=== PATIENT | female | born 1975 ===

== ENCOUNTER 2021-04-28 09:10 | Outpatient (REF) | payer OTHER, SELFPAY ==
[2021-04-28 09:33] LABS: MANUAL DIFF FLAG NO
[2021-04-28 10:44] LABS: Basophils Absolute Auto 0.1 X10*3/uL (0.0-0.2); Basophils Percent Auto 0.8 % (0-2); Eosinophils Absolute Auto 0.2 X10*3/uL (0.0-0.4); Eosinophils Percent Auto 3.1 % (0-4); Hematocrit 38.5 % (37-47); Hemoglobin 12.1 g/dl (12.0-16.0); Imm Gran Abs Auto 0.01 X10*3/uL (0.00-0.03); Imm Gran Pct Auto 0.1 % (0.0-0.4); Lymphocytes Absolute Auto 1.9 X10*3/uL (1.2-4.9); Lymphocytes Percent Auto 25.6 % (20-40); Mean Corpuscular HGB Conc 31.4 g/dl (31.0-35.0); Mean Corpuscular Hemoglobin 26.9 pg (27.0-33.0); Mean Corpuscular Volume 85.6 fL (80-98); Mean Platelet Volume 9.1 fL (9.4-12.3); Monocytes Absolute Auto 0.4 X10*3/uL (0.1-1.2); Monocytes Percent Auto 5.6 % (2-11); Neutrophils Absolute Auto 4.8 X10*3/uL (2.0-8.3); Neutrophils Percent Auto 64.8 % (45-73); Platelet Count 330 X10*3/uL (160-400); Red Cell Distribution Width 13.4 % (11.0-16.0); White Blood Count 7.5 X10*3/uL (4.8-10.8)
[2021-04-28 10:58] LABS: Alanine Aminotransferase 15 U/L (0-31); Albumin Level 4.1 g/dL (3.5-5.0); Alkaline Phosphatase 88 U/L (39-117); Anion Gap 9 (12-20); Aspartate Amino Transferase 16 U/L (5-31); Bilirubin Total 0.5 mg/dL (0.0-1.0); Blood Urea Nitrogen 8 mg/dL (9-16); Calcium 8.9 mg/dL (8.4-10.2); Carbon Dioxide 27 mmol/L (22-29); Chloride 108 mmol/L (96-108); Cholesterol 186 mg/dL; Estimated Glomerular Filt Rate > 60; Glucose Random 113 mg/dL (60-115); HDL Cholesterol 50 mg/dL; LDL Cholesterol Calculated 116 mg/dl; Potassium 4.7 mmol/L (3.3-5.1); Sodium 139 mmol/L (135-145); Total Protein 7.2 g/dL (6.5-8.0); Triglycerides 102 mg/dL
[2021-04-28 11:09] LABS: Estimated Average Glucose 120 mg/dL; Hemoglobin A1C 126.4308 umol/L; Hemoglobin A1c % 5.8 %
[2021-04-28 11:18] LABS: Thyroid Stimulating Hormone 1.02 uIU/mL (0.32-4.0)
[2021-04-28 11:20] LABS: Free T4 (Free Thyroxine) 0.91 ng/dL (0.71-1.85); Vitamin D 25-OH Total 12.4 ng/mL (>30)
[2021-04-28 11:27] LABS: Folate 13.4 ng/mL (> or = 4.0); Vitamin B12 288 pg/mL (200-900)
== END 2021-04-28 09:11 | disposition home or self-care (01) ==
LOC: HO.LAB 09:10
PROVIDERS: Internal Medicine; PCP Internal Medicine; Visit Provider Internal Medicine
DX: R10.10 Upper abdominal pain, unspecified (principal); R73.02 Impaired glucose tolerance (oral); E78.00 Pure hypercholesterolemia, unspecified
CPT/HCPCS: 36415; 80053; 80061; 82306; 82607; 82746; 83036; 84439; 84443; 85025

== ENCOUNTER 2022-07-04 11:03 | Outpatient (REF) | payer OTHER, SELFPAY ==
--- NOTE | ~2022-07-04 | MM_ITS ---
EXAMINATION: MM SCREENING DIGITAL BREAST TOMOSYNTHESIS, BILATERAL CLINICAL INFORMATION: Screening. Asymptomatic. The lifetime risk of breast cancer based on the Tyrer-Cuzick Model is 6.8%. COMPARISON: Mammography: April 07, 2020 and studies dating back to June 06, 2017 TECHNIQUE: Digital breast tomosynthesis is performed in both the craniocaudal and mediolateral oblique views along with computer-aided detection (CAD). Synthesized 2D images are generated from the tomosynthesis. FINDINGS: The breasts are heterogeneously dense, which may obscure small masses (ACR BI-RADS breast composition Category c). There are no significant masses, abnormal calcifications, or other abnormalities. MM/MM tomosynthesis screening BI IMPRESSION: No significant changes from prior exam. ASSESSMENT: BI-RADS 1: Negative RECOMMENDATION: Routine annual mammography screening. This patient's information was entered into a reminder system with a target due date for their next mammogram.
== END 2022-07-04 11:04 | disposition home or self-care (01) ==
LOC: HO.MAMMO 11:03
PROVIDERS: PCP Internal Medicine; Visit Provider Internal Medicine
DX: Z12.31 Encounter for screening mammogram for malignant neoplasm of breast (principal)
CPT/HCPCS: 77063; 77067

== ENCOUNTER 2022-08-07 08:36 | Outpatient (REF) | payer SELFPAY ==
[2022-08-07 08:46] LABS: MANUAL DIFF FLAG NO
[2022-08-07 09:12] LABS: Basophils Percent Auto 0.6 % (0-2); Eosinophils Absolute Auto 0.2 X10*3/uL (0.0-0.4); Eosinophils Percent Auto 2.8 % (0-4); Hematocrit 37.8 % (37.0-47.0); Hemoglobin 11.5 g/dl (12.0-16.0); Imm Gran Abs Auto 0.03 X10*3/uL (0.00-0.03); Imm Gran Pct Auto 0.4 % (0.0-0.4); Lymphocytes Absolute Auto 2.4 X10*3/uL (1.2-4.9); Lymphocytes Percent Auto 32.8 % (20-40); Mean Corpuscular HGB Conc 30.4 g/dl (31.0-35.0); Mean Corpuscular Hemoglobin 26.3 pg (27.0-33.0); Mean Corpuscular Volume 86.3 fL (80.0-98.0); Mean Platelet Volume 8.9 fL (9.4-12.3); Monocytes Absolute Auto 0.5 X10*3/uL (0.1-1.2); Monocytes Percent Auto 6.3 % (2-11); Neutrophils Absolute Auto 4.1 x10*3/uL (2.0-8.3); Neutrophils Percent Auto 57.1 % (45-73); Platelet Count 345 X10*3/uL (160-400); Red Blood Count 4.38 X10*6/uL (4.20-5.50); Red Cell Distribution Width 13.2 % (11.0-16.0); White Blood Count 7.2 X10*3/uL (4.8-10.8)
[2022-08-07 09:49] LABS: HBS Num1 0.18 mIU/mL (0-7.99); HBc Num1 0.09 S/CO (0.00-0.79); HBsAGNum1 0.22 S/CO (0.00-0.99); Hepatitis B Core Antibody Nonreactive (Nonreactive); Hepatitis B Surface Antigen Negative (Negative); ~Hepatitis B Surface Antibody NONREACTIVE (Nonreactive); ~Hepatitis C Antibody Nonreactive (Nonreactive)
[2022-08-08 05:33] LABS: Rubella IgG Antibody 1.39 Index
[2022-08-09 11:23] LABS: TS Negative Control Passed; TS Panel A 0; TS Panel B 0; TS Positive Control Passed; TSpotTB Negative (Negative)
== END 2022-08-07 08:37 | disposition home or self-care (01) ==
LOC: HO.LAB 08:36
PROVIDERS: Absent Provider Nurse Practitioner Family; PCP Internal Medicine; Visit Provider Internal Medicine
DX: Z02.1 Encounter for pre-employment examination (principal); R79.89 Other specified abnormal findings of blood chemistry; Z13.0 Encounter for screening for diseases of the blood and blood-forming organs and certain disorders involving the immune mechanism; Z11.1 Encounter for screening for respiratory tuberculosis
CPT/HCPCS: 36415; 85025; 86481; 86704; 86706; 86735; 86762; 86765; 86787; 86803; 87340

== ENCOUNTER 2023-05-21 16:32 | Outpatient (AMB) | payer OTHER, SELFPAY ==
[2023-05-21 16:35] VITALS: BP 116/78; PULSE 86; O2SAT 99; BMI 38.3
--- NOTE | 2023-05-21 16:35 | A.OFFPC_ITS ---
Vital Signs 3 05/21/23 16:35 Height 5 ft 3 in Weight 216 lb 0.8 oz BMI 38.3 BP 116/78 Blood Pressure Location Lt brachial Position Sitting Pulse 86 Pulse Source Pulse Oximeter Pulse Oximetry (%) 99 Oxygen Delivery Method Room Air Intake Visit Reasons: PE Donation Specialist Required: No Allergies No Known Allergies Allergy (Verified 05/21/23 16:40) Medication List - Last Reconciled 05/21/23 by Klaus Pineda MD Tobacco use date assessed: 05/21/23 Dental Screening Dental Screen Date: 05/21/23 Did you have a dental visit in the last 12 months?: Yes Did you have a dental problem in the last 6 months where you did not have access to dental care?: No Was dental information given to patient?: Patient has dentist HPI PE 2 HPI0 Details 48-year-old obese female with impaired g lucose tolerance generalized anxiety disorder coming in for physical exam. Last seen in January 2022. Mammogram is due in June. Review of the notes May 2022 was in the hospital for menorrhagia- was advised iud but patient declined and wants to have surgery, occ nausea, , chest pain- sob, 1 day, , no heart burn feels when relaxed but acytive no pain, problem with sleeping and wants to take med PFSH Medical History (Updated 05/21/23 @ 17:06 by Klaus Pineda MD) Abnormal perimenopausal bleeding Allergic rhinitis Generalized anxiety disorder Vitamin D deficiency Lumbar herniated disc Obesity (BMI 30-39.9) Migraine headache Surgical History (Updated 08/15/20 @ 11:24 by Klaus Pineda MD) History of back surgery History of tubal ligation Family History (Updated 05/21/23 @ 16:54 by Klaus Pineda MD) Father Myocardial infarction History of heart artery stent CVD (cardiovascular disease) HTN (hypertension) Mother No problems noted. Maternal Grandfather Esophageal cancer Paternal Aunt Lung cancer Daughter Leukemia Social History (Updated 05/21/23 @ 16:54 by Klaus Pineda MD) Housing: Apartment Alcohol intake: never Patient Tobacco Use Status: Former Tobacco user Tobacco use type: Cigarette e-Cigarette/Vaping Use: Never Used Second Hand Smoke Exposure: No service: No Current occupational status: employed Cognitive needs: No Hearing needs: No Vision needs: No Questionnaire PHQ-9 Over the last 2 weeks, how often have you been bothered by any of the following problems? 1. Little interest or pleasure in doing things: not at all 2. Feeling down, depressed, or hopeless: not at all 3. Trouble falling or staying asleep, or sleeping too much: not at all 4. Feeling tired or having little energy: not at all 5. Poor appetite or overeating: not at all 6. Feeling bad about yourself - or that you are a failure or have let yourself or your family down: not at all 7. Trouble concentrating on things, such as reading the newspaper or watching television: not at all 8. Moving or speaking so slowly that other people could have noticed. Or the opposite - being so fidgety or restless that you have been moving around a lot more than usual: not at all 9. Thoughts that you would be better off or of hurting yourself in some way: not at all Total score: 0 Depression Screening Interpretation: Negative Depression Screening Done: Yes Source: Developed by Drs. Glenn Varela, Wanda Jasso, Jesús Owen and colleagues, with an educational torrey from [employer]. Thrive Questionnaire Date Thrive assessed: 05/21/23 I am a: Patient What is your living situation today?: I have a steady place to live Within the past 12 months, did the food you bought not last and you didn't have the money to get more?: Never true Within the past 12 months, did you worry whether your food would run out before you got money to buy more?: Never true Do you have trouble paying for medicines?: No Do you have trouble getting transportation to medical appointments?: No Do you have trouble paying your heating and electricity bill?: No Do you have trouble taking care of your child, family member or friend?: No Do you have trouble with day-to-day activities such as bathing, preparing meals, shopping, managing finances, etc.?: No Are you currently unemployed and looking for a job?: No Are you interested in more education?: No AUDIT C Alcohol Use Questionnaire (AUDIT-C) 1. How often do you have a drink containing alcohol?: 2-4 times a month 2. How many drinks containing alcohol do you have on a typical day when you are drinking?: 1 or 2 3. How often do you have six or more drinks on one occasion?: Never Total Score: 2 AVERY-7 AMB Questionnaire AVERY-7 Date AVERY - 7 assessed: 05/21/23 Feeling nervous, anxious, or on edge: 0 = Not at all Not being able to stop or control worryin = Not at all Worrying too much about different things: 0 = Not at all Trouble relaxin = Not at all Being so restless that it is hard to sit still: 0 = Not at all Becoming easily annoyed or irritable: 0 = Not at all Feeling afraid as if something awful might happen: 0 = Not at all Total AVERY-7 score (0-4 normal; 5-9 mild; 10-14 moderate; 15-21 severe): 0 Source: Developed by Drs. Glenn Varela, Wanda Jasso, Jesús Owen and colleagues, with an educational torrey from [employer]. Review of Systems Const Denies poor appetite and Denies weakness Eyes Denies no additional complaints ENT Reports Normal hearing present, Denies dizziness, Denies nasal congestion, Denies tinnitus and Denies sore throat Card Denies chest pain, Denies syncope, Denies rapid heart rate and Denies dyspnea Resp Denies cough and Denies dyspnea GI Denies change in stool character, Reports constipation, Denies diarrhea, Denies nausea and Denies vomiting Denies urinary frequency, Denies difficulty voiding and Denies dysuria Neuro Reports Normal hearing present, Denies confusion, Denies dizziness, Denies syncope and Denies weakness Psych Denies confusion Physical exam (Primary Care) Vital Signs: Last Vital Signs Pulse 86 05/21/23 16:35 BP 116/78 05/21/23 16:35 Pulse Ox 99 05/21/23 16:35 Oxygen Delivery Method Room Air 05/21/23 16:35 BMI result Body Mass Index 38.3 Tobacco/Smoking Status: Tobacco use Status Tobacco use date assessed 05/21/23 05/21/23 16:41 Patient Tobacco Use Status Former Tobacco user 05/21/23 16:41 Tobacco use type Cigarette 05/21/23 16:41 e-Cigarette/Vaping Use Never Used 05/21/23 16:41 PHQ-9: PHQ-9 Score PHQ-9: Total score 0 05/21/23 16:45 Depression Screening Interpretation: Negative Thrive Assessment: Date of Thrive Assessment Date Thrive assessed 05/21/23 05/21/23 16:41 Const General: No confusion Orientation/consciousness: No confusion HENMT Head: Yes normocephalic Ears: external ears normal and TM's normal bilaterally Face and sinus: Yes normal facial exam Mouth: moist mucous membranes Throat: Yes tonsils normal Eyes Conjunctivae: conjunctivae normal Pupils: Equal, round and reactive pupils present and Pupil accommodation reflex normal Direct Ophthalmoscopy: normal light reflex Neck Neck: No lymphadenopathy Thyroid: Thyroid normal Chest Chest palpation & inspection: normal inspection of the chest Resp Effort & Inspection: normal respiratory effort and no audible wheezes Auscultation: clear to auscultation bilaterally, no crackles, no wheezes and lung sounds not diminished Cardio Rate: regular rate Rhythm: regular rhythm Peripheral pulses: radial pulses present and dorsalis pedis present GI Palpation (GI): no masses Auscultation: normal bowel sounds and normoactive bowel sounds Rectal Exam - Female: deferred Skin General skin exam: no rashes or lesions noted Rashes: no rashes Neuro General: No confusion Cranial nerves: Yes Equal, round and reactive pupils present and Yes Normal hearing present Cognition (Neuro): normal cognition Gait exam (Neuro): Normal gait present Motor exam (neuro): 5/5 motor strength present throughout Deep tendon reflexes (DTR's): Right brachioradialis reflex intensity grade: 2+, Left brachioradialis reflex intensity grade: 2+, Right patellar reflex intensity grade: 2+ and Left patellar reflex intensity grade: 2+ Extrem General: No edema Ankle/foot/toe images: 2 1. scaly scabby rash erythematous area 5 by 4 inchesL foot Assessment and Plan Assessment & Plan (1) Annual physical exam: Code(s): Z00.00 - Encounter for general adult medical examination without abnormal findings (2) Obesity (BMI 30-39.9): Code(s): E66.9 - Obesity, unspecified (3) Generalized anxiety disorder: Code(s): F41.1 - Generalized anxiety disorder Plan: Stable (4) Menorrhagia: Code(s): N92.0 - Excessive and frequent menstruation with regular cycle Plan: Patient follows up with Gynecology (5) Impaired glucose tolerance: Code(s): R73.02 - Impaired glucose tolerance (oral) Plan: Decrease the amount of carbohydrate intake, pasta, bread, rice and potatoes are all sugar and that is aside from all the sweet stuff, remember that fruits are good but they are Sweet also. (6) Colon cancer screening: Code(s): Z12.11 - Encounter for screening for malignant neoplasm of colon (7) Insomnia: Code(s): G47.00 - Insomnia, unspecified (8) Eczematous dermatitis: Comment: left foot Code(s): L30.9 - Dermatitis, unspecified Orders: Orders 2 RT home sleep study Today G47.10 - Hypersomnia, unspecified Ferritin Today R73.02 - Impaired glucose tolerance (oral) IRON PROFILE Today R73.02 - Impaired glucose tolerance (oral) Free T4 (Free Thyroxine) Today R73.02 - Impaired glucose tolerance (oral) Thyroid Stimulating Hormone Today R73.02 - Impaired glucose tolerance (oral) Vitamin D 25-OH Total Today R73.02 - Impaired glucose tolerance (oral) Hemoglobin A1c Today R73.02 - Impaired glucose tolerance (oral) Reticulocyte Count Today R73.02 - Impaired glucose tolerance (oral) Lipid Panel Today E78.00 - Pure hypercholesterolemia, unspecified, R73.02 - Impaired glucose tolerance (oral) UA w Microscopic Today R73.02 - Impaired glucose tolerance (oral) Complete Blood Count Auto Diff Today R73.02 - Impaired glucose tolerance (oral) Vitamin B12 and Folate Today R73.02 - Impaired glucose tolerance (oral) Comprehensive Met. Panel Today R73.02 - Impaired glucose tolerance (oral) Erythrocyte Sedimentation Rate Today R73.02 - Impaired glucose tolerance (oral) C Reactive Protein Today R73.02 - Impaired glucose tolerance (oral) Referrals 2 Gastroenterology Referral Z12.11 - Encounter for screening for malignant neoplasm of colon Dermatology Referral L30.9 - Dermatitis, unspecified Medications: New 2 betamethasone dipropionate 0.05% 1 appl topical BID PRN 45 grams 0RF skin irritation L30.9 - Dermatitis, unspecified semaglutide (weight loss) (Ortiz) administer weeks 1 through 4 of therapy 0.25 mg (0.5 mL) subcut QWEEK 2 mL 1RF E66.9 - Obesity, unspecified trazodone 50 mg PO BEDTIME PRN 30 tabs 1RF sleep G47.00 - Insomnia, unspecified Coding Level of Care Code Est Pt Prev Care 40-64y(11335) Diagnoses Annual physical exam Z00.00 Obesity (BMI 30-39.9) E66.9 Generalized anxiety disorder F41.1 Menorrhagia N92.0 Impaired glucose tolerance R73.02 Colon cancer screening Z12.11 Insomnia G47.00 Eczematous dermatitis L30.9
== END 2023-05-21 17:14 | disposition home or self-care (01) ==
PROVIDERS: PCP Internal Medicine; Visit Provider Internal Medicine
DX: Z00.00 Encounter for general adult medical examination without abnormal findings (principal); E66.9 Obesity, unspecified; Z68.38 Body mass index [BMI] 38.0-38.9, adult; G43.909 Migraine, unspecified, not intractable, without status migrainosus
CPT/HCPCS: 99396

== ENCOUNTER 2023-05-29 10:25 | Outpatient (AMB) | payer OTHER, SELFPAY ==
--- NOTE | 2023-05-29 10:48 | AM.OFFVISNUR ---
Intake Intake Visit Reasons: FLU Allergies No Known Allergies Allergy (Verified 05/21/23 16:40) Office Procedures Flu Questionnaire Does the patient have a severe egg allergy?: No Does the patient have severe life threatening allergies?: No Does the patient have a fever or illness today?: No Has the patient ever had Guillain-[place] Syndrome?: No Has the patient ever had any past reaction to a flu shot?: No Immunizations flu vacc [id number] 6mos up(PF) 60 mcg(15 mcgx4)/0.5 mL IM syringe Performing Provider: Klaus Pineda MD Performing Location: [facility] Administered by: Loretta Wolf RN on 05/29/23 10:48 Dose Route Admin Location Dispensed Lot Number Expiration Date NDC Morning [employer] 0.5 mL IM Left Deltoid 0.5 mL [id number] 01/20/24 61540-992-75 [employer] VIS Given Date VIS Provided VIS Publication Date 05/29/23 Single Vaccine 21 Eligibility Eligibility Date Funding Source Not [facility] Eligible 05/29/23 Private Coding Assessment & Plan Assessment & Plan Orders: Orders Influenza [id number] Immunization Today Z23 - Encounter for immunization
== END 2023-05-29 10:53 | disposition home or self-care (01) ==
PROVIDERS: PCP Internal Medicine; Visit Provider Internal Medicine
DX: Z23 Encounter for immunization (principal)
CPT/HCPCS: 90471; 90686

== ENCOUNTER → 2023-06-21 07:37 | Outpatient (REF) | payer OTHER, SELFPAY ==
[2023-06-21 07:54] LABS: MANUAL DIFF FLAG NO
[2023-06-21 08:15] LABS: Basophils Percent Auto 0.7 % (0-2); Eosinophils Absolute Auto 0.2 X10*3/uL (0.0-0.4); Eosinophils Percent Auto 2.8 % (0-4); Hematocrit 39.1 % (37.0-47.0); Hemoglobin 12.3 g/dl (12.0-16.0); Imm Gran Abs Auto 0.02 X10*3/uL (0.00-0.03); Imm Gran Pct Auto 0.3 % (0.0-0.4); Lymphocytes Percent Auto 33.4 % (20-40); Mean Corpuscular HGB Conc 31.5 g/dl (31.0-35.0); Mean Corpuscular Hemoglobin 26.6 pg (27.0-33.0); Mean Corpuscular Volume 84.4 fL (80.0-98.0); Monocytes Absolute Auto 0.4 X10*3/uL (0.1-1.2); Monocytes Percent Auto 6.8 % (2-11); Neutrophils Absolute Auto 3.4 x10*3/uL (2.0-8.3); Platelet Count 331 X10*3/uL (160-400); Red Blood Count 4.63 X10*6/uL (4.20-5.50); Red Cell Distribution Width 13.2 % (11.0-16.0); Retic HGB Equivalent 28.7 pg (30.0-35.0); Reticulocyte Percent 1.2 % (0.5-1.8); Reticulocytes Absolute 0.057 X10*6/uL (0.026-0.095); White Blood Count 6.1 X10*3/uL (4.8-10.8)
[2023-06-21 08:27] LABS: Estimated Average Glucose 123 mg/dL; Hemoglobin A1c % 5.9 % (<6.0)
[2023-06-21 08:48] LABS: Alanine Aminotransferase 17 U/L (0-31); Albumin Level 4.2 g/dL (3.5-5.0); Alkaline Phosphatase 90 U/L (39-117); Anion Gap 10 (12-20); Aspartate Amino Transferase 18 U/L (5-31); Bilirubin Total 0.6 mg/dL (0.0-1.0); Blood Urea Nitrogen 9 mg/dL (9-16); C Reactive Protein 0.91 mg/dL (< or = 0.50); Calcium 9.1 mg/dL (8.4-10.2); Carbon Dioxide 27 mmol/L (22-29); Chloride 106 mmol/L (96-108); Cholesterol 185 mg/dL (<200); Estimated Glomerular Filt Rate > 60; Glucose Random 118 mg/dL (60-115); HDL Cholesterol 55 mg/dL (>40); Iron 91 mcg/dL (30-160); LDL Cholesterol Calculated 112 mg/dL (<100); Percent Iron Saturation 32 % (15-50); Sodium 139 mmol/L (135-145); Total Iron Binding Capacity 287 mcg/dL (228-428); Total Protein 7.5 g/dL (6.5-8.0); Triglycerides 92 mg/dL (<150); Unsaturated Iron Binding 196 ug/dL
[2023-06-21 09:00] LABS: Erythrocyte Sedimentation Rate 10 MM/HR (0-20)
[2023-06-21 09:15] LABS: Appearance Urine Cloudy; Color Urine Yellow; Glucose Urine UA Negative (Negative); Leukocyte Esterase Urine Trace (Negative); Nitrite Urine Negative (Negative); PH 5.5 (5.0-9.0); Specific Gravity - Urine 1.025 (1.005-1.025); UMIC TRIGGER UA YES; Urine Blood Trace (Negative); Urine Ketones Negative (Negative); Urine Protein Negative (Neg-Trace)
[2023-06-21 09:17] LABS: Folate 9.6 ng/mL (> or = 4.0); Vitamin B12 327 pg/mL (200-900)
[2023-06-21 09:18] LABS: Bacteria Urine 4+ (None Seen)
[2023-06-21 09:20] LABS: Ferritin 35 ng/mL (10-250); Free T4 (Free Thyroxine) 0.95 ng/dL (0.71-1.85); Thyroid Stimulating Hormone 1.92 uIU/mL (0.32-4.0); Vitamin D 25-OH Total 14.2 ng/mL (>30)
== END ==
LOC: HO.SL 07:37
PROVIDERS: PCP Internal Medicine; Visit Provider Internal Medicine
DX: G47.10 Hypersomnia, unspecified (principal); R06.83 Snoring; E78.00 Pure hypercholesterolemia, unspecified; R73.02 Impaired glucose tolerance (oral)
CPT/HCPCS: 36415; 80053; 80061; 81001; 82306; 82607; 82728; 82746; 83036; 83540; 84439; 84443; 85025; 85045; 85652; 86140; 95806

== ENCOUNTER → 2023-06-21 08:06 | Outpatient (BNV) | payer OTHER, SELFPAY | PROVIDERS: PCP Internal Medicine; Visit Provider Internal Medicine | DX: R06.83 Snoring (principal); G47.10 Hypersomnia, unspecified | CPT/HCPCS: 95806 ==

== ENCOUNTER 2023-07-05 07:46 | Outpatient (REF) | payer OTHER, SELFPAY ==
--- NOTE | ~2023-07-05 | MM_ITS ---
EXAMINATION: MM SCREENING DIGITAL BREAST TOMOSYNTHESIS, BILATERAL CLINICAL INFORMATION: Screening. Asymptomatic. COMPARISON: Mammography: 07/04/2022, 04/07/2020, and dating back to 2017. TECHNIQUE: Digital breast tomosynthesis is performed in both the craniocaudal and mediolateral oblique views along with computer-aided detection (CAD). Synthesized 2D images are generated from the tomosynthesis. An additional right MLO full-field view was also provided. FINDINGS: The breasts are heterogeneously dense, which may obscure small masses (ACR BI-RADS breast composition Category c). There are a few subtle scattered calcifications without suspicious grouping identified. These are stable. There are no suspicious masses, suspicious grouped calcifications, or areas of architectural distortion in either breast. The parenchymal pattern is stable from prior exams. MM/MM tomosynthesis screening BI IMPRESSION: No mammographic evidence of malignancy. Stable benign findings. ASSESSMENT: BI-RADS BI-RADS 2 - Benign Findings RECOMMENDATION: Routine annual mammography screening. 1 year F/U This examination should not preclude the clinical evaluation of a suspicious palpable abnormality. This patient's information was entered into a reminder system with a target due date for their next mammogram.
== END 2023-07-05 07:47 | disposition home or self-care (01) ==
LOC: HO.MAMMO 07:46
PROVIDERS: PCP Internal Medicine; Visit Provider Internal Medicine
DX: Z12.31 Encounter for screening mammogram for malignant neoplasm of breast (principal)
CPT/HCPCS: 77063; 77067

== ENCOUNTER → 2023-07-05 09:00 | Outpatient (BNV) | payer OTHER, SELFPAY | PROVIDERS: PCP Internal Medicine; Visit Provider Radiology Diagnostic Radiology | DX: Z12.31 Encounter for screening mammogram for malignant neoplasm of breast (principal) | CPT/HCPCS: 77063; 77067 ==

== ENCOUNTER 2023-07-31 12:25 | Outpatient (AMB) | payer OTHER, SELFPAY ==
[2023-07-31 12:39] VITALS: BP 116/80; PULSE 74; O2SAT 97; BMI 39.0
--- NOTE | 2023-07-31 12:39 | MHC.PC.OV ---
Vital Signs 07/31/23 12:39 Height 5 ft 3 in Weight 220 lb 0.2 oz BMI 39.0 BP 116/80 Blood Pressure Location Lt brachial Position Sitting Pulse 74 Pulse Source Pulse Oximeter Pulse Oximetry (%) 97 Oxygen Delivery Method Room Air Intake Visit Reasons: follow up Chief Underwriter Required: No Allergies No Known Allergies Allergy (Verified 07/31/23 12:40) Medication List - Last Reconciled 07/31/23 by Klaus Pineda MD betamethasone dipropionate 0.05% 1 appl topical BID PRN cholecalciferol (vitamin D3) 50 mcg PO DAILY 90 days semaglutide (weight loss) (Wegovy) 0.25 mg (0.5 mL) subcut QWEEK trazodone 50 mg PO BEDTIME PRN Tobacco use date assessed: 07/31/23 Dental Screening Dental Screen Date: 07/31/23 HPI follow up HPI Details 48-year-old obese female with impaired glucose tolerance generalized anxiety disorder last seen in April 2023. Patient's mammogram is up-to-date has been referred for colon cancer screening. Review of the notes in June 21 had a sleep study done showing no evidence of sleep apnea there is excessive snoring PFSH Medical History (Updated 05/21/23 @ 17:06 by Klaus Pineda MD) Abnormal perimenopausal bleeding Allergic rhinitis Generalized anxiety disorder Vitamin D deficiency Lumbar herniated disc Obesity (BMI 30-39.9) Migraine headache Surgical History (Updated 08/15/20 @ 11:24 by Klaus Pineda MD) History of back surgery History of tubal ligation Family History (Updated 05/21/23 @ 16:54 by Klaus Pineda MD) Father Myocardial infarction History of heart artery stent CVD (cardiovascular disease) HTN (hypertension) Mother No problems noted. Maternal Grandfather Esophageal cancer Paternal Aunt Lung cancer Daughter Leukemia Social History (Updated 05/21/23 @ 16:54 by Klaus Pineda MD) Housing: Apartment Alcohol intake: never Patient Tobacco Use Status: Former Tobacco user Tobacco use type: Cigarette e-Cigarette/Vaping Use: Never Used Second Hand Smoke Exposure: No service: No Current occupational status: employed Cognitive needs: No Hearing needs: No Vision needs: No Questionnaire PHQ-9 Over the last 2 weeks, how often have you been bothered by any of the following problems? 1. Little interest or pleasure in doing things: not at all 2. Feeling down, depressed, or hopeless: not at all 3. Trouble falling or staying asleep, or sleeping too much: not at all 4. Feeling tired or having little energy: not at all 5. Poor appetite or overeating: not at all 6. Feeling bad about yourself - or that you are a failure or have let yourself or your family down: not at all 7. Trouble concentrating on things, such as reading the newspaper or watching television: not at all 8. Moving or speaking so slowly that other people could have noticed. Or the opposite - being so fidgety or restless that you have been moving around a lot more than usual: not at all 9. Thoughts that you would be better off or of hurting yourself in some way: not at all Total score: 0 Depression Screening Interpretation: Negative Depression Screening Done: Yes Source: Developed by Drs. Glenn Varela, Wanda Jasso, Jesús Owen and colleagues, with an educational torrey from [employer]. Thrive Questionnaire Date Thrive assessed: 07/31/23 I am a: Patient What is your living situation today?: I have a steady place to live Within the past 12 months, did the food you bought not last and you didn't have the money to get more?: Never true Within the past 12 months, did you worry whether your food would run out before you got money to buy more?: Never true Do you have trouble paying for medicines?: No Do you have trouble getting transportation to medical appointments?: No Do you have trouble paying your heating and electricity bill?: No Do you have trouble taking care of your child, family member or friend?: No Do you have trouble with day-to-day activities such as bathing, preparing meals, shopping, managing finances, etc.?: No Are you currently unemployed and looking for a job?: No Are you interested in more education?: No AUDIT C Alcohol Use Questionnaire (AUDIT-C) 1. How often do you have a drink containing alcohol?: 2-4 times a month 2. How many drinks containing alcohol do you have on a typical day when you are drinking?: 1 or 2 3. How often do you have six or more drinks on one occasion?: Never Total Score: 2 AVERY-7 AMB Questionnaire AVERY-7 Date AVERY - 7 assessed: 07/31/23 Feeling nervous, anxious, or on edge: 0 = Not at all Not being able to stop or control worryin = Not at all Worrying too much about different things: 0 = Not at all Trouble relaxin = Not at all Being so restless that it is hard to sit still: 0 = Not at all Becoming easily annoyed or irritable: 0 = Not at all Feeling afraid as if something awful might happen: 0 = Not at all Total AVERY-7 score (0-4 normal; 5-9 mild; 10-14 moderate; 15-21 severe): 0 Source: Developed by Drs. Glenn Varela, Wanda Jasso, Jesús Owen and colleagues, with an educational torrey from [employer]. Physical exam (Primary Care) Vital Signs: Last Vital Signs Pulse 74 07/31/23 12:39 BP 116/80 07/31/23 12:39 Pulse Ox 97 07/31/23 12:39 Oxygen Delivery Method Room Air 07/31/23 12:39 BMI result Body Mass Index 39.0 Tobacco/Smoking Status: Tobacco use Status Tobacco use date assessed 07/31/23 07/31/23 12:41 Patient Tobacco Use Status Former Tobacco user 07/31/23 12:41 Tobacco use type Cigarette 07/31/23 12:41 e-Cigarette/Vaping Use Never Used 07/31/23 12:41 PHQ-9: PHQ-9 Score PHQ-9: Total score 0 07/31/23 12:41 Depression Screening Interpretation: Negative Thrive Assessment: Date of Thrive Assessment Date Thrive assessed 07/31/23 07/31/23 12:41 Const General: alert; No acute distress Eyes Conjunctivae: conjunctivae normal Resp Auscultation: clear to auscultation bilaterally Cardio Rate: regular rate Rhythm: regular rhythm GI Inspection: Yes normal to inspection Extrem General: Yes normal to inspection and No edema Assessment and Plan Assessment & Plan (1) Obesity (BMI 30-39.9): Code(s): E66.9 - Obesity, unspecified Plan: Diet and exercise (2) Impaired glucose tolerance: Code(s): R73.02 - Impaired glucose tolerance (oral) Plan: Decrease the amount of carbohydrate intake, pasta, bread, rice and potatoes are all sugar and that is aside from all the sweet stuff, remember that fruits are good but they are Sweet also. (3) Vitamin D deficiency: Code(s): E55.9 - Vitamin D deficiency, unspecified Plan: Vitamin-D 2408-4039 units once a day (4) Colon cancer screening: Code(s): Z12.11 - Encounter for screening for malignant neoplasm of colon Plan: Reminded about colonoscopy (5) Generalized anxiety disorder: Code(s): F41.1 - Generalized anxiety disorder Orders: Referrals Sleep Medicine Referral G47.10 - Hypersomnia, unspecified Medications: New cholecalciferol (vitamin D3) 50 mcg PO DAILY 90 days 90 caps 3RF E55.9 - Vitamin D deficiency, unspecified, G47.10 - Hypersomnia, unspecified Coding Level of Care Code Est Pt Level 4 (88991) Diagnoses Obesity (BMI 30-39.9) E66.9 Impaired glucose tolerance R73.02 Vitamin D deficiency E55.9 Colon cancer screening Z12.11 Generalized anxiety disorder F41.1
== END 2023-07-31 13:25 | disposition home or self-care (01) ==
PROVIDERS: PCP Internal Medicine; Visit Provider Internal Medicine
DX: R73.02 Impaired glucose tolerance (oral) (principal); E55.9 Vitamin D deficiency, unspecified; E66.9 Obesity, unspecified; Z68.39 Body mass index [BMI] 39.0-39.9, adult; Z12.11 Encounter for screening for malignant neoplasm of colon; F41.1 Generalized anxiety disorder
CPT/HCPCS: 99214

== ENCOUNTER 2023-08-10 09:14 | Outpatient (AMB) | payer OTHER, SELFPAY ==
[2023-08-10 09:28] VITALS: BP 140/80; PULSE 97; TEMP 36.6; O2SAT 98; BMI 39.3
--- NOTE | 2023-08-10 09:28 | MHC.OFFWIV ---
Intake Vital Signs 08/10/23 09:28 Height 5 ft 3 in Weight 222 lb BMI 39.3 BP 140/80 H Blood Pressure Location Lt brachial Position Sitting Pulse 97 Pulse Source Pulse Oximeter Temp 97.8 F Temp Source Temporal Artery Scan Pulse Oximetry (%) 98 Oxygen Delivery Method Room Air Intake Visit Reasons: EP, fatigue, sob due to anxiety(lobby) Intake Note: pt is here today for fatigue sob due to anxiety started today Patient Tobacco Use Status: Former Tobacco user Allergies No Known Allergies Allergy (Verified 08/10/23 09:28) Medication List - Last Reconciled 08/10/23 by Anay Michael NP betamethasone dipropionate 0.05% 1 appl topical BID PRN cholecalciferol (vitamin D3) 50 mcg PO DAILY 90 days semaglutide (weight loss) (Wegovy) 0.25 mg (0.5 mL) subcut QWEEK trazodone 50 mg PO BEDTIME PRN Do you need a note to return to daycare/school/sports/work: Yes HPI HPI Comments History of Present Illness Details 48 y/o female presents to walk in clinic with c/o fatigue and SOB and chest pain. Pt reports feeling heaviness inside her chest. Denies Palpitations. H/o irregular rhythm, where she was admitted for it. Had Cardio consult in the [facility]. Family h/o NM. PFSH Medical History (Updated 05/21/23 @ 17:06 by Klaus Pineda MD) Abnormal perimenopausal bleeding Allergic rhinitis Generalized anxiety disorder Vitamin D deficiency Lumbar herniated disc Obesity (BMI 30-39.9) Migraine headache Surgical History (Updated 08/15/20 @ 11:24 by Klaus Pineda MD) History of back surgery History of tubal ligation Family History (Updated 05/21/23 @ 16:54 by Klaus Pineda MD) Father Myocardial infarction History of heart artery stent CVD (cardiovascular disease) HTN (hypertension) Mother No problems noted. Maternal Grandfather Esophageal cancer Paternal Aunt Lung cancer Daughter Leukemia Social History (Updated 05/21/23 @ 16:54 by Klaus Pineda MD) Housing: Apartment Alcohol intake: never Patient Tobacco Use Status: Former Tobacco user Tobacco use type: Cigarette e-Cigarette/Vaping Use: Never Used Second Hand Smoke Exposure: No service: No Current occupational status: employed Cognitive needs: No Hearing needs: No Vision needs: No Review of Systems Const All systems reviewed & are unremarkable except as noted in HPI and below Physical Exam Vital Signs: Last Vital Signs Temp 97.8 F 08/10/23 09:28 Pulse 97 08/10/23 09:28 BP 140/80 H 08/10/23 09:28 Pulse Ox 98 08/10/23 09:28 Oxygen Delivery Method Room Air 08/10/23 09:28 BMI result Body Mass Index 39.3 Resp Effort & Inspection: normal respiratory effort Auscultation: clear to auscultation bilaterally Cardio Jugular venous distension: JVD present Palpation: abnormal PMI Rate: regular rate Rhythm: abnormal rhythm Heart sounds: Murmur heart sound present Bruits: no abdominal aortic bruits and no carotid bruits Peripheral pulses: Peripheral pulses 2+ throughout GI Palpation (GI): No Abdominal aortic bruit present Assessment & Plan Assessment & Plan (1) Chest pain: Code(s): R07.9 - Chest pain, unspecified Qualifiers: Chest pain type: other chest pain Qualified Code(s): R07.89 - Other chest pain Plan: - Abnormal EKG - Advised to go to ED - Pt refused Ambulance, opted to driving herself - Advised to call 911 if symptoms return while driving. Orders: Orders AMB EKG-In Office Today R07.9 - Chest pain, unspecified Coding Level of Care Code Est Pt Level 4 (97531) Diagnoses Other chest pain R07.89 Chest pain type: other chest pain Time Spent (min) 20
== END 2023-08-10 10:39 | disposition home or self-care (01) ==
PROVIDERS: PCP Internal Medicine; Visit Provider Nurse Practitioner Family
DX: R07.89 Other chest pain (principal)
CPT/HCPCS: 93000; 99214

== ENCOUNTER 2023-09-19 11:34 | Outpatient (AMB) | payer OTHER, SELFPAY ==
--- NOTE | 2023-09-19 11:50 | MHC.OFFVIS ---
Intake Vital Signs 09/19/23 11:57 Height 5 ft 3 in Weight 222 lb 4 oz BMI 39.4 BP 126/72 Blood Pressure Location Lt brachial Position Sitting Pulse 65 Intake Visit Reasons: Colonoscopy Screening Intake Note: Patient is seen in office for colonoscopy screening. Pt c/o:admits to constipation since last week, blood on toilet paper and stool, straining, denies nausea, vomit, diarrhea, or GI issues Bow Tacker Required: No Accompanied by: Self / Same As Patient Allergies No Known Allergies Allergy (Verified 09/19/23 11:55) Medication List - Last Reconciled 09/19/23 by Maria De Jesus Hanna PA-C betamethasone dipropionate 0.05% 1 appl topical BID PRN cholecalciferol (vitamin D3) 50 mcg PO DAILY 90 days semaglutide (weight loss) (Wegovy) 0.25 mg (0.5 mL) subcut QWEEK trazodone 50 mg PO BEDTIME PRN HPI HPI Comments History of Present Illness Details A 48 y/o female reefrred for index screening Father has polyps She has hemorrhoids - she tends to strain- BM daily- hard stool Appetite is good- she stopped eating bread to losose weight- hasn't started Wegovy as of yet Seeing cardiology this week due to recent CP/ abnormal EKG- irregular HR- sent to - ED-she is very concerned about her cardiac status-she has no cardiac complaints today She has no nausea, vomiting, hematemesis, hematochezia fever or chills. She has no chest pain, shortness of breath, headaches or dizzy [facility], [facility] Medical History (Updated 09/20/23 @ 09:54 by Maria De Jesus Hanna PA-C) Abnormal perimenopausal bleeding Allergic rhinitis Generalized anxiety disorder Vitamin D deficiency Lumbar herniated disc Obesity (BMI 30-39.9) Migraine headache Surgical History History of back surgery History of tubal ligation Family History Father Myocardial infarction History of heart artery stent CVD (cardiovascular disease) HTN (hypertension) Mother No problems noted. 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 Cognitive needs: No Hearing needs: No Vision needs: No Physical Exam Vital Signs: Last Vital Signs Pulse 65 09/19/23 11:57 BP 126/72 09/19/23 11:57 BMI result Body Mass Index 39.4 Const General: cooperative, healthy appearing, comfortable, no acute distress and anxious Orientation/consciousness: patient oriented x3 Limitations: no limitations Eyes Sclerae: sclerae normal Resp Effort & Inspection: normal respiratory effort and able to speak in complete sentences Auscultation: clear to auscultation bilaterally, no rhonchi, no wheezes and breath sounds present Cardio Rate: regular rate Rhythm: regular rhythm Heart sounds: S1 normal heart sound present, S2 normal heart sound present and no murmurs GI Palpation (GI): Soft to palpation and nontender Auscultation: normal bowel sounds Skin General skin exam: no rashes or lesions noted Neuro General: patient oriented x3 Extrem General: Yes full ROM Psych Appearance: grossly normal Mental Status: mental status grossly normal Speech and movement: Normal speech and movement present and Clear speech present Affect: Anxious affect present Attitude: cooperative Thought process: Normal thought process present Thought content: Normal thought content present Assessment & Plan Assessment & Plan (1) Chronic constipation: Code(s): K59.09 - Other constipation Plan: Consistent bowel regimen Maintain high-fiber diet (2) Colon cancer screening: Comment: Referred for screening colonoscopy however recent cardiac event undergoing cardiac evaluation-history unclear Will hold off at this time Code(s): Z12.11 - Encounter for screening for malignant neoplasm of colon Plan: Hold off on colonoscopy (3) Family history of hyperplastic colon polyps: Code(s): Z83.711 - Family history of hyperplastic colon polyps Plan hold off on colo- cards colace sent Medications: New docusate sodium (Colace) 200 mg (2 x 100 mg) PO BEDTIME 60 caps 5RF Patient Instructions: Pleasant , somewhat anxious 48-year-old female referred for screening colonoscopy recent cardiac event undergoing cardiac evaluation Will await cardiac consult and recommendations Reviewed chronic constipation, consistent bowel regimen as well as maintaining high-fiber diet may serve her well Will follow back her for plan of care. She is encouraged to call with any questions concerns, change in health status No major barriers to understanding were identified Appreciate the opportunity assist in the care the patient Coding Level of Care Code New Pt Level 4 (80134) Diagnoses Chronic constipation K59.09 Colon cancer screening Z12.11 Family history of hyperplastic colon polyps Z83.711 Time Spent (min) 35
[2023-09-19 11:57] VITALS: BP 126/72; PULSE 65; BMI 39.4
== END 2023-09-19 13:13 | disposition home or self-care (01) ==
PROVIDERS: PCP Internal Medicine; Visit Provider Physician Assistant
DX: K59.09 Other constipation (principal); Z12.11 Encounter for screening for malignant neoplasm of colon; Z83.711 Family history of hyperplastic colon polyps
CPT/HCPCS: 99204

== ENCOUNTER → 2023-09-19 11:34 | Outpatient (BNVA) | payer OTHER, SELFPAY | PROVIDERS: PCP Internal Medicine; Visit Provider Physician Assistant | DX: Z12.11 Encounter for screening for malignant neoplasm of colon (principal); K59.09 Other constipation; Z83.711 Family history of hyperplastic colon polyps | CPT/HCPCS: 99202 ==

== ENCOUNTER 2023-11-21 11:37 | Outpatient (AMB) | payer OTHER, SELFPAY ==
[2023-11-21 11:41] VITALS: BP 142/78; PULSE 80; O2SAT 98; BMI 38.3
--- NOTE | 2023-11-21 11:41 | MHC.PC.OV ---
Vital Signs 11/21/23 11:41 11/21/23 12:17 Height 5 ft 3 in Weight 216 lb BMI 38.3 BP 142/78 H 120/80 Blood Pressure Location Lt brachial Lt brachial Position Sitting Sitting Pulse 80 Pulse Source Pulse Oximeter Pulse Oximetry (%) 98 Oxygen Delivery Method Room Air Intake Visit Reasons: ED Follow Up Allergies No Known Allergies Allergy (Verified 11/21/23 11:41) Medication List - Last Reconciled 11/21/23 by Klaus Pineda MD betamethasone dipropionate 0.05% 1 appl topical BID PRN cholecalciferol (vitamin D3) 50 mcg PO DAILY 90 days docusate sodium (Colace) 200 mg (2 x 100 mg) PO BEDTIME meloxicam 15 mg PO DAILY semaglutide (weight loss) (Wegovy) 0.25 mg (0.5 mL) subcut QWEEK trazodone 50 mg PO BEDTIME PRN Tobacco use date assessed: 07/31/23 Dental Screening Dental Screen Date: 07/31/23 HPI ED Follow Up HPI Details 48-year-old obese female with impaired glucose tolerance generalized anxiety disorder coming in for follow-up. Last seen in July 2023. Patient's mammogram is up-to-date June 2023 review of the notes had coronary angiography done in September 2023 revealing no significant coronary artery disease. Also noted July 2023 with chest pain but this was noncardiac. [facility] Medical History (Updated 11/21/23 @ 12:25 by Klaus Pineda MD) Abnormal perimenopausal bleeding Allergic rhinitis Generalized anxiety disorder Vitamin D deficiency Lumbar herniated disc Obesity (BMI 30-39.9) Migraine headache Surgical History (Updated 11/21/23 @ 12:09 by Klaus Pineda MD) Hx of cardiac catheterization History of back surgery History of tubal ligation Family History (Updated 11/21/23 @ 11:42 by Mar Killian CMA) Father Myocardial infarction History of heart artery stent CVD (cardiovascular disease) HTN (hypertension) Mother No problems noted. 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 1. Little interest or pleasure in doing things: not at all 2. Feeling down, depressed, or hopeless: not at all 3. Trouble falling or staying asleep, or sleeping too much: not at all 4. Feeling tired or having little energy: not at all 5. Poor appetite or overeating: not at all 6. Feeling bad about yourself - or that you are a failure or have let yourself or your family down: not at all 7. Trouble concentrating on things, such as reading the newspaper or watching television: not at all 8. Moving or speaking so slowly that other people could have noticed. Or the opposite - being so fidgety or restless that you have been moving around a lot more than usual: not at all 9. Thoughts that you would be better off or of hurting yourself in some way: not at all Total score: 0 Depression Screening Interpretation: Negative Depression Screening Done: Yes Source: Developed by Drs. Glenn Varela, Jesús Vasquez and colleagues, with an educational torrey from [employer]. Thrive Questionnaire Date Thrive assessed: 07/31/23 AUDIT C Alcohol Use Questionnaire (AUDIT-C) 1. How often do you have a drink containing alcohol?: 2-4 times a month 2. How many drinks containing alcohol do you have on a typical day when you are drinking?: 1 or 2 3. How often do you have six or more drinks on one occasion?: Never Total Score: 2 AVERY-7 AMB Questionnaire AVERY-7 Date AVERY - 7 assessed: 07/31/23 Source: Developed by Drs. Glenn Varela, Jesús Vasquez and colleagues, with an educational torrey from [employer]. Physical exam (Primary Care) Vital Signs: Last Vital Signs Pulse 80 11/21/23 11:41 BP 142/78 H 11/21/23 11:41 Pulse Ox 98 11/21/23 11:41 Oxygen Delivery Method Room Air 11/21/23 11:41 BMI result Body Mass Index 38.3 Tobacco/Smoking Status: Tobacco use Status Tobacco use date assessed 07/31/23 11/21/23 11:46 Patient Tobacco Use Status Former Tobacco user 11/21/23 11:46 Tobacco use type Cigarette 11/21/23 11:46 e-Cigarette/Vaping Use Never Used 11/21/23 11:46 PHQ-9: PHQ-9 Score PHQ-9: Total score 0 11/21/23 11:46 Depression Screening Interpretation: Negative Thrive Assessment: Date of Thrive Assessment Date Thrive assessed 07/31/23 11/21/23 11:46 Const General: alert; No acute distress Eyes Conjunctivae: conjunctivae normal Resp Auscultation: clear to auscultation bilaterally Cardio Rate: regular rate Rhythm: regular rhythm GI Inspection: Yes normal to inspection Extrem General: Yes normal to inspection and No edema Assessment and Plan Assessment & Plan (1) Chest pain: Comment: Cardiac catheterization October 09- Code(s): R07.9 - Chest pain, unspecified Plan: Patient had a cardiac workup revealing negative results. Discussed about gastrointestinal, pulmonary, and musculoskeletal causes of pain. (2) Impaired glucose tolerance: Code(s): R73.02 - Impaired glucose tolerance (oral) Plan: Decrease the amount of carbohydrate intake, pasta, bread, rice and potatoes are all sugar and that is aside from all the sweet stuff, remember that fruits are good but they are Sweet also. (3) Obesity (BMI 30-39.9): Code(s): E66.9 - Obesity, unspecified Plan: Diet and exercise, noted weight loss prescription for semaglutide sent in. (4) Generalized anxiety disorder: Code(s): F41.1 - Generalized anxiety disorder Plan: Continue with trazodone. (5) Low back pain: Comment: November 2009 mild disc herniation L4-L5 with broad-based disc herniation L5-S1 Code(s): M54.50 - Low back pain, unspecified Plan: Patient has a history of disc herniation November 2009 MRI. Has had epidural injection under neurosurgeon. Discussed about weight loss (6) Right hip pain: Code(s): M25.551 - Pain in right hip Plan: X-ray of the right hip requested. Advised to lose the weight. Orders: Orders Complete Blood Count Auto Diff Today R73.02 - Impaired glucose tolerance (oral) Comprehensive Met. Panel Today R73.02 - Impaired glucose tolerance (oral) Lipid Panel Today E78.00 - Pure hypercholesterolemia, unspecified, R73.02 - Impaired glucose tolerance (oral) Thyroid Stimulating Hormone Today R73.02 - Impaired glucose tolerance (oral) XR lumbar spine 2-3V Today M54.50 - Low back pain, unspecified Hemoglobin A1c Today R73.02 - Impaired glucose tolerance (oral) Free T4 (Free Thyroxine) Today R73.02 - Impaired glucose tolerance (oral) UA w Microscopic Today R73.02 - Impaired glucose tolerance (oral) XR hip RT w PEL1V Today M25.551 - Pain in right hip Medications: New meloxicam 15 mg PO DAILY 30 tabs 0RF M54.50 - Low back pain, unspecified Refilled semaglutide (weight loss) (Ortiz) administer weeks 1 through 4 of therapy 0.25 mg (0.5 mL) subcut QWEEK 2 mL 1RF E66.9 - Obesity, unspecified Coding Level of Care Code Est Pt Level 4 (19140) Diagnoses Chest pain R07.9 Impaired glucose tolerance R73.02 Obesity (BMI 30-39.9) E66.9 Generalized anxiety disorder F41.1 Low back pain M54.50 Right hip pain M25.551
[2023-11-21 12:17] VITALS: BP 120/80
== END 2023-11-21 12:26 | disposition home or self-care (01) ==
PROVIDERS: PCP Internal Medicine; Visit Provider Internal Medicine
DX: R07.9 Chest pain, unspecified (principal); R73.02 Impaired glucose tolerance (oral); E66.9 Obesity, unspecified; Z68.38 Body mass index [BMI] 38.0-38.9, adult; F41.1 Generalized anxiety disorder; M54.50 Low back pain, unspecified; M25.551 Pain in right hip
CPT/HCPCS: 99214

== ENCOUNTER 2024-02-18 09:33 | Outpatient (REF) | payer OTHER, SELFPAY ==
--- NOTE | ~2024-02-18 | XR_ITS ---
EXAMINATION: XR LUMBOSACRAL SPINE CLINICAL INFORMATION: Low back pain, unspecified. Herniated disc. COMPARISON: MRI dated 04/28/2019 TECHNIQUE: AP and lateral views of the lumbar spine and lateral view of the lumbosacral junction. FINDINGS: Moderate degenerative disc disease is evident at L5-S1 with loss of vertebral disc height and endplate osteophytes. Mild degenerative disc disease noted at L4-L5. Mild facet arthropathy at L5-S1. No fracture or malalignment. Soft tissues are unremarkable. XR/XR lumbar spine 2-3V IMPRESSION: Moderate degenerative disc disease at L5-S1 and mild degenerative disc disease at L4-L5.
--- NOTE | ~2024-02-18 | XR_ITS ---
EXAMINATION: XR HIP, RIGHT CLINICAL INFORMATION: Pain in the right hip. COMPARISON: None available. TECHNIQUE: AP view of the pelvis and AP and frog-leg lateral views of the right hip. FINDINGS: No fracture. Alignment is anatomic. Hip joint space is maintained. Tiny marginal osteophytes are present at the acetabular rim. Facet arthropathy is present in the lower lumbar spine. SI joints are unremarkable. XR/XR hip RT w PEL1V IMPRESSION: Hip joints appear relatively well-preserved aside from tiny acetabular marginal osteophytes. No acute osseous findings..
[2024-02-18 09:50] LABS: MANUAL DIFF FLAG NO
[2024-02-18 10:39] LABS: Basophils Absolute Auto 0.1 X10*3/uL (0.0-0.2); Basophils Percent Auto 0.7 % (0-2); Eosinophils Absolute Auto 0.2 X10*3/uL (0.0-0.4); Eosinophils Percent Auto 2.8 % (0-4); Hematocrit 36.8 % (37.0-47.0); Hemoglobin 11.8 g/dl (12.0-16.0); Imm Gran Abs Auto 0.02 X10*3/uL (0.00-0.03); Imm Gran Pct Auto 0.3 % (0.0-0.4); Lymphocytes Absolute Auto 2.4 X10*3/uL (1.2-4.9); Lymphocytes Percent Auto 31.8 % (20-40); Mean Corpuscular HGB Conc 32.1 g/dl (31.0-35.0); Mean Corpuscular Hemoglobin 27.2 pg (27.0-33.0); Mean Corpuscular Volume 84.8 fL (80.0-98.0); Mean Platelet Volume 9.1 fL (9.4-12.3); Monocytes Absolute Auto 0.5 X10*3/uL (0.1-1.2); Monocytes Percent Auto 6.3 % (2-11); Neutrophils Absolute Auto 4.3 x10*3/uL (2.0-8.3); Neutrophils Percent Auto 58.1 % (45-73); Platelet Count 311 X10*3/uL (160-400); Red Blood Count 4.34 X10*6/uL (4.20-5.50); Red Cell Distribution Width 13.2 % (11.0-16.0); White Blood Count 7.4 X10*3/uL (4.8-10.8)
[2024-02-18 10:47] LABS: Appearance Urine Cloudy; Color Urine Dark Yellow; Glucose Urine UA Negative (Negative); Leukocyte Esterase Urine Small (1+) (Negative); Nitrite Urine Negative (Negative); PH 5.5 (5.0-9.0); Specific Gravity - Urine >= 1.030 (1.005-1.025); UMIC TRIGGER UA YES; Urine Blood Trace (Negative); Urine Ketones Trace mg/dL (Negative); Urine Protein 30 (1+) mg/dL (Neg-Trace)
[2024-02-18 11:00] LABS: Bacteria Urine 2+ (None Seen); Hyaline Casts Urine 0-2 /LPF (0-2); RBC Urine 0-2 /HPF (0-2); Squamous Epithelial Cell Urine >20 /HPF (0-2)
[2024-02-18 11:10] LABS: Estimated Average Glucose 117 mg/dL; Hemoglobin A1c % 5.7 % (<6.0)
[2024-02-18 11:39] LABS: Alanine Aminotransferase 17 U/L (0-31); Albumin Level 4.1 g/dL (3.5-5.0); Alkaline Phosphatase 96 U/L (39-117); Anion Gap 9 (12-20); Aspartate Amino Transferase 16 U/L (5-31); Bilirubin Total 0.5 mg/dL (0.0-1.0); Blood Urea Nitrogen 10 mg/dL (9-16); Calcium 9.1 mg/dL (8.4-10.2); Carbon Dioxide 27 mmol/L (22-29); Chloride 109 mmol/L (96-108); Cholesterol 182 mg/dL (<200); Estimated Glomerular Filt Rate > 60; Free T4 (Free Thyroxine) 0.97 ng/dL (0.71-1.85); Glucose Random 101 mg/dL (60-115); HDL Cholesterol 49 mg/dL (>40); LDL Cholesterol Calculated 120 mg/dL (<100); Potassium 3.7 mmol/L (3.3-5.1); Sodium 141 mmol/L (135-145); Thyroid Stimulating Hormone 1.45 uIU/mL (0.32-4.0); Total Protein 7.2 g/dL (6.5-8.0); Triglycerides 69 mg/dL (<150)
== END 2024-02-18 09:34 | disposition home or self-care (01) ==
LOC: HO.LAB 09:33
PROVIDERS: PCP Internal Medicine; Visit Provider Internal Medicine
DX: R73.02 Impaired glucose tolerance (oral) (principal); E78.00 Pure hypercholesterolemia, unspecified; M25.551 Pain in right hip; M54.50 Low back pain, unspecified; M47.817 Spondylosis without myelopathy or radiculopathy, lumbosacral region
CPT/HCPCS: 36415; 72100; 73502; 80053; 80061; 81001; 83036; 84439; 84443; 85025

== ENCOUNTER 2024-04-09 08:27 | Outpatient (AMB) | payer OTHER, SELFPAY ==
[2024-04-09 08:42] VITALS: BP 116/66; PULSE 62; O2SAT 97; BMI 35.1
--- NOTE | 2024-04-09 08:42 | MHC.PC.OV ---
Vital Signs 04/09/24 08:42 Height 5 ft 3 in Weight 198 lb BMI 35.1 BP 116/66 Blood Pressure Location Lt brachial Position Sitting Pulse 62 Pulse Source Pulse Oximeter Pulse Oximetry (%) 97 Oxygen Delivery Method Room Air Intake Visit Reasons: 3 Month Follow Up Allergies No Known Allergies Allergy (Verified 04/09/24 08:43) Medication List - Last Reconciled 04/09/24 by Klaus Pineda MD betamethasone dipropionate 0.05% 1 appl topical BID PRN cholecalciferol (vitamin D3) 50 mcg PO DAILY 90 days docusate sodium (Colace) 200 mg (2 x 100 mg) PO BEDTIME meloxicam 15 mg PO DAILY semaglutide (weight loss) 1 mg (0.5 mL) subcut QWEEK 4 weeks trazodone 50 mg PO BEDTIME PRN Tobacco use date assessed: 07/31/23 Dental Screening Dental Screen Date: 07/31/23 HPI 3 Month Follow Up HPI Details 48-year-old obese female with impaired glucose tolerance generalized anxiety disorder chronic low back pain right hip pain. Last seen in 12/10/2023. Mammogram is up-to-date. Discussed about colonoscopy also. Noted 18 lb weight loss PFSH Medical History (Updated 04/09/24 @ 09:07 by Klaus Pineda MD) Abnormal perimenopausal bleeding Allergic rhinitis Generalized anxiety disorder Vitamin D deficiency Lumbar herniated disc Obesity (BMI 30-39.9) Migraine headache Surgical History (Updated 11/21/23 @ 12:09 by Klaus Pineda MD) Hx of cardiac catheterization History of back surgery History of tubal ligation Family History (Updated 11/21/23 @ 11:42 by Mar Killian CMA) Father Myocardial infarction History of heart artery stent CVD (cardiovascular disease) HTN (hypertension) Mother No problems noted. 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 1. Little interest or pleasure in doing things: not at all 2. Feeling down, depressed, or hopeless: not at all 3. Trouble falling or staying asleep, or sleeping too much: not at all 4. Feeling tired or having little energy: not at all 5. Poor appetite or overeating: not at all 6. Feeling bad about yourself - or that you are a failure or have let yourself or your family down: not at all 7. Trouble concentrating on things, such as reading the newspaper or watching television: not at all 8. Moving or speaking so slowly that other people could have noticed. Or the opposite - being so fidgety or restless that you have been moving around a lot more than usual: not at all 9. Thoughts that you would be better off or of hurting yourself in some way: not at all Total score: 0 Depression Screening Interpretation: Negative Depression Screening Done: Yes Source: Developed by Drs. Glenn Varela, Wanda Jasso, Jesús Owen and colleagues, with an educational torrey from [employer]. Thrive Questionnaire Date Thrive assessed: 07/31/23 Are you currently unemployed and looking for a job?: No AUDIT C Alcohol Use Questionnaire (AUDIT-C) 1. How often do you have a drink containing alcohol?: 2-4 times a month 2. How many drinks containing alcohol do you have on a typical day when you are drinking?: 1 or 2 3. How often do you have six or more drinks on one occasion?: Never Total Score: 2 AVERY-7 AMB Questionnaire AVERY-7 Date AVERY - 7 assessed: 07/31/23 Source: Developed by Drs. Glenn Varela, Wanda Jasso, Jesús Owen and colleagues, with an educational torrey from [employer]. Physical exam (Primary Care) Vital Signs: Last Vital Signs Pulse 62 04/09/24 08:42 BP 116/66 04/09/24 08:42 Pulse Ox 97 04/09/24 08:42 Oxygen Delivery Method Room Air 04/09/24 08:42 BMI result Body Mass Index 35.1 Tobacco/Smoking Status: Tobacco use Status Tobacco use date assessed 07/31/23 04/09/24 08:47 Patient Tobacco Use Status Former Tobacco user 04/09/24 08:47 Tobacco use type Cigarette 04/09/24 08:47 e-Cigarette/Vaping Use Never Used 04/09/24 08:47 PHQ-9: PHQ-9 Score PHQ-9: Total score 0 04/09/24 08:47 Depression Screening Interpretation: Negative Thrive Assessment: Date of Thrive Assessment Date Thrive assessed 07/31/23 04/09/24 08:47 Const General: alert; No acute distress Eyes Conjunctivae: conjunctivae normal Resp Auscultation: clear to auscultation bilaterally Cardio Rate: regular rate Rhythm: regular rhythm GI Inspection: Yes normal to inspection Extrem General: Yes normal to inspection and No edema Assessment and Plan Assessment & Plan (1) Low back pain: Comment: November 2009 mild disc herniation L4-L5 with broad-based disc herniation L5-S1 Code(s): M54.50 - Low back pain, unspecified Plan: Keep active and lose the weight (2) Colon cancer screening: Comment: Referred for screening colonoscopy however recent cardiac event undergoing cardiac evaluation-history unclear Will hold off at this time Code(s): Z12.11 - Encounter for screening for malignant neoplasm of colon Plan: Patient is reminded about colonoscopy (3) Obesity (BMI 30-39.9): Code(s): E66.9 - Obesity, unspecified Plan: Diet and exercise continue with the semaglutide (4) Generalized anxiety disorder: Code(s): F41.1 - Generalized anxiety disorder Plan: Stable (5) Impaired glucose tolerance: Code(s): R73.02 - Impaired glucose tolerance (oral) Plan: Decrease the amount of carbohydrate intake, pasta, bread, rice and potatoes are all sugar and that is aside from all the sweet stuff, remember that fruits are good but they are Sweet also. (6) Hair loss: Code(s): L65.9 - Nonscarring hair loss, unspecified Orders: Referrals Dermatology Referral L65.9 - Nonscarring hair loss, unspecified Medications: Changed From semaglutide (weight loss) administer weeks 1 through 4 of therapy 0.5 mg (0.5 mL) subcut QWEEK 2 mL 2RF E66.9 - Obesity, unspecified To semaglutide (weight loss) administer weeks 1 through 4 of therapy 1 mg (0.5 mL) subcut QWEEK 4 weeks 2 mL 2RF E66.9 - Obesity, unspecified Discontinued nitrofurantoin monohyd/m-cryst 100 mg must administer with a meal/food Discontinued Reason: Doctor's Order 100 mg PO Q12H 5 days 10 caps 0RF Coding Level of Care Code Est Pt Level 4 (27904) Diagnoses Low back pain M54.50 Colon cancer screening Z12.11 Obesity (BMI 30-39.9) E66.9 Generalized anxiety disorder F41.1 Impaired glucose tolerance R73.02 Hair loss L65.9
== END 2024-04-09 09:13 | disposition home or self-care (01) ==
PROVIDERS: PCP Internal Medicine; Visit Provider Internal Medicine
DX: M54.50 Low back pain, unspecified (principal); Z12.11 Encounter for screening for malignant neoplasm of colon; E66.9 Obesity, unspecified; Z68.35 Body mass index [BMI] 35.0-35.9, adult; F41.1 Generalized anxiety disorder; R73.02 Impaired glucose tolerance (oral); L65.9 Nonscarring hair loss, unspecified

== ENCOUNTER → 2024-04-09 08:27 | Outpatient (BNVA) | payer OTHER, SELFPAY | PROVIDERS: PCP Internal Medicine; Visit Provider Internal Medicine | DX: R73.02 Impaired glucose tolerance (oral) (principal); E66.9 Obesity, unspecified; M54.50 Low back pain, unspecified; F41.1 Generalized anxiety disorder; L65.9 Nonscarring hair loss, unspecified | CPT/HCPCS: 99212 ==

== ENCOUNTER 2024-06-06 11:33 | Outpatient (AMB) | payer OTHER, SELFPAY ==
--- NOTE | 2024-06-06 11:36 | MHC.OFFWIV ---
Intake Vital Signs 06/06/24 11:37 Height 5 ft 3 in Weight 198 lb BMI 35.1 BP 128/80 Blood Pressure Location Rt brachial Position Sitting Pulse 83 Pulse Source Pulse Oximeter Pulse Oximetry (%) 97 Intake Visit Reasons: EP-lt knee pain Intake Note: pt is here for left knee pain Patient Tobacco Use Status: Former Tobacco user Allergies No Known Allergies Allergy (Verified 06/06/24 11:37) Do you need a note to return to daycare/school/sports/work: No HPI HPI Comments History of Present Illness Details 49 y/o female patient who presents to the walk in clinic with c/o left knee for few days day. Denies injury or trauma to the joint. [facility] Medical History (Updated 04/09/24 @ 09:07 by Klaus Pineda MD) Abnormal perimenopausal bleeding Allergic rhinitis Generalized anxiety disorder Vitamin D deficiency Lumbar herniated disc Obesity (BMI 30-39.9) Migraine headache Surgical History (Updated 11/21/23 @ 12:09 by Klaus Pineda MD) Hx of cardiac catheterization History of back surgery History of tubal ligation Family History (Updated 11/21/23 @ 11:42 by Mar Killian CMA) Father Myocardial infarction History of heart artery stent CVD (cardiovascular disease) HTN (hypertension) Mother No problems noted. 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- [employer] Cognitive needs: No Hearing needs: No Vision needs: No Review of Systems Const All systems reviewed & are unremarkable except as noted in HPI and below Physical Exam Vital Signs: Last Vital Signs Pulse 83 06/06/24 11:37 BP 128/80 06/06/24 11:37 Pulse Ox 97 06/06/24 11:37 BMI result Body Mass Index 35.1 Const General: cooperative and no acute distress Nutritional Appearance: overweight Orientation/consciousness: patient oriented x3 Neuro General: patient oriented x3, gait normal (Walks with a limp due to pain) and moves all extremities Extrem Right lower extremity: normal to inspection and full ROM Left lower extremity: knee Details: tenderness Location: of the patella and of the medial joint line and abnormal ROM (Limited ROM due to pain.); no swelling, no lacerations and no ecchymosis Assessment & Plan Assessment & Plan (1) Strain of left knee: Code(s): S86.912A - Strain of unspecified muscle(s) and tendon(s) at lower leg level, left leg, initial encounter Qualifiers: Encounter type: initial encounter Qualified Code(s): S86.912A - Strain of unspecified muscle(s) and tendon(s) at lower leg level, left leg, initial encounter Plan: Ordered Xray Acetaminophen and NSAIDs for pain relief. Ordered PT IceHot Orders: Orders PT Evaluation and Treatment Today S86.912A - Strain of unspecified muscle(s) and tendon(s) at lower leg level, left leg, initial encounter Medications: New diclofenac sodium 1% (Voltaren Arthritis Pain) APPLY TO THE AFFECTED KNEE 2 grams topical QID 100 grams 0RF S86.912A - Strain of unspecified muscle(s) and tendon(s) at lower leg level, left leg, initial encounter meloxicam 7.5 mg PO DAILY 30 tabs 0RF S86.912A - Strain of unspecified muscle(s) and tendon(s) at lower leg level, left leg, initial encounter cyclobenzaprine 10 mg PO BEDTIME 20 tabs 0RF S86.912A - Strain of unspecified muscle(s) and tendon(s) at lower leg level, left leg, initial encounter acetaminophen 1,000 mg (2 x 500 mg) PO Q6H PRN 20 caps 0RF pain S86.912A - Strain of unspecified muscle(s) and tendon(s) at lower leg level, left leg, initial encounter Coding Level of Care Code Est Pt Level 4 (02103) Diagnoses Strain of left knee, initial encounter S86.912A Encounter type: initial encounter Time Spent (min) 20
[2024-06-06 11:37] VITALS: BP 128/80; PULSE 83; O2SAT 97; BMI 35.1
== END 2024-06-06 12:06 | disposition home or self-care (01) ==
PROVIDERS: PCP Internal Medicine; Visit Provider Nurse Practitioner Family
DX: S86.912A Strain of unspecified muscle(s) and tendon(s) at lower leg level, left leg, initial encounter (principal)

== ENCOUNTER 2024-06-06 11:33 | Outpatient (REF) | payer OTHER, SELFPAY ==
--- NOTE | ~2024-06-06 | XR_ITS ---
EXAMINATION: XR KNEE, LEFT CLINICAL INFORMATION: Left knee pain. COMPARISON: None available. TECHNIQUE: Four views of the left knee. FINDINGS: No acute fracture or dislocation. No joint space narrowing or marginal osteophytes. No osseous erosion. No joint effusion. No abnormal soft tissue calcification. XR/XR knee LT 4V IMPRESSION: Unremarkable examination. Electronically signed by: Cruz Harding MD 06/06/2024 01:29 PM [facility] [place]
== END 2024-06-06 11:34 | disposition home or self-care (01) ==
LOC: HO.HMGCX 11:33
PROVIDERS: PCP Internal Medicine; Visit Provider Nurse Practitioner Family
DX: S86.912A Strain of unspecified muscle(s) and tendon(s) at lower leg level, left leg, initial encounter (principal)
CPT/HCPCS: 73564; 99212

== ENCOUNTER 2024-07-10 07:54 | Outpatient (REF) | payer OTHER, SELFPAY | END 2024-07-10 07:55 | disposition home or self-care (01) | LOC: HO.MAMMO 07:54 | PROVIDERS: PCP Internal Medicine; Visit Provider Internal Medicine | DX: Z12.31 Encounter for screening mammogram for malignant neoplasm of breast (principal) | CPT/HCPCS: 77063; 77067 ==

== ENCOUNTER → 2024-07-10 08:00 | Outpatient (BNV) | payer OTHER, SELFPAY | PROVIDERS: PCP Internal Medicine; Visit Provider Internal Medicine | DX: Z12.31 Encounter for screening mammogram for malignant neoplasm of breast (principal) | CPT/HCPCS: 77063; 77067 ==

== ENCOUNTER 2024-07-30 09:37 | Outpatient (AMB) | payer OTHER, SELFPAY ==
--- NOTE | 2024-07-30 09:41 | A.OFFPC_ITS ---
Vital Signs 07/30/24 09:42 Height 5 ft 3 in Weight 187 lb BMI 33.1 BP 114/62 Blood Pressure Location Lt brachial Position Sitting Pulse 78 Pulse Source Pulse Oximeter Pulse Oximetry (%) 98 Oxygen Delivery Method Room Air Intake Visit Reasons: 3mth f/u Allergies No Known Allergies Allergy (Verified 07/30/24 09:42) Tobacco use date assessed: 07/30/24 Dental Screening Dental Screen Date: 07/30/24 Did you have a dental visit in the last 12 months?: No Did you have a dental problem in the last 6 months where you did not have access to dental care?: No Was dental information given to patient?: Patient has dentist HPI 3mth f/u HPI Details 49-year-old obese female noted 11 lb kip ght loss with impaired glucose tolerance generalized anxiety disorder chronic low back pain last seen in March. Review of the notes had chest pains in September had a cardiac catheterization revealing negative results. Patient has been reminded about colonoscopy but gastroenterology wants clearance from Cardiology so will refer to Cardiology although as mentioned earlier cardiac catheterization was normal coronaries. Otherwise patient's last blood work was done in January with an hemoglobin A1c of 5.7. As for medication for weight loss patient has had the injections, the G LP 1 once a week injections but in the last 3 weeks has not had the medication due to insurance coverage. But noted weight loss still happening. [facility] Medical History (Updated 04/09/24 @ 09:07 by Klaus Pineda MD) Abnormal perimenopausal bleeding Allergic rhinitis Generalized anxiety disorder Vitamin D deficiency Lumbar herniated disc Obesity (BMI 30-39.9) Migraine headache Surgical History (Updated 11/21/23 @ 12:09 by Klaus Pineda MD) Hx of cardiac catheterization History of back surgery History of tubal ligation Family History (Updated 11/21/23 @ 11:42 by Mar Killian CMA) Father Myocardial infarction History of heart artery stent CVD (cardiovascular disease) HTN (hypertension) Mother No problems noted. 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 1. Little interest or pleasure in doing things: not at all 2. Feeling down, depressed, or hopeless: not at all 3. Trouble falling or staying asleep, or sleeping too much: not at all 4. Feeling tired or having little energy: not at all 5. Poor appetite or overeating: not at all 6. Feeling bad about yourself - or that you are a failure or have let yourself or your family down: not at all 7. Trouble concentrating on things, such as reading the newspaper or watching television: not at all 8. Moving or speaking so slowly that other people could have noticed. Or the opposite - being so fidgety or restless that you have been moving around a lot more than usual: not at all 9. Thoughts that you would be better off or of hurting yourself in some way: not at all Total score: 0 Depression Screening Interpretation: Negative Depression Screening Done: Yes Source: Developed by Drs. Glenn Varela, Wanda Jasso, Jesús Owen and colleagues, with an educational torrey from [employer]. Thrive Questionnaire Date Thrive assessed: 07/30/24 I am a: Patient What is your living situation today?: I have a steady place to live Within the past 12 months, did the food you bought not last and you didn't have the money to get more?: Never true Within the past 12 months, did you worry whether your food would run out before you got money to buy more?: Never true Do you have trouble paying for medicines?: No Do you have trouble getting transportation to medical appointments?: No Do you have trouble paying your heating and electricity bill?: No Do you have trouble taking care of your child, family member or friend?: No Do you have trouble with day-to-day activities such as bathing, preparing meals, shopping, managing finances, etc.?: No Are you currently unemployed and looking for a job?: No Are you interested in more education?: No Currently or been in a relationship where the following occur: No concerns reported THRIVE Score: 0 AUDIT C Alcohol Use Questionnaire (AUDIT-C) 1. How often do you have a drink containing alcohol?: 2-4 times a month 2. How many drinks containing alcohol do you have on a typical day when you are drinking?: 1 or 2 3. How often do you have six or more drinks on one occasion?: Never Total Score: 2 AVERY-7 AMB Questionnaire AVERY-7 Date AVERY - 7 assessed: 07/30/24 Feeling nervous, anxious, or on edge: 0 = Not at all Not being able to stop or control worryin = Not at all Worrying too much about different things: 0 = Not at all Trouble relaxin = Not at all Being so restless that it is hard to sit still: 0 = Not at all Becoming easily annoyed or irritable: 0 = Not at all Feeling afraid as if something awful might happen: 0 = Not at all Total AVERY-7 score (0-4 normal; 5-9 mild; 10-14 moderate; 15-21 severe): 0 Source: Developed by Drs. Glenn Varela, Wanda Jasso, Jesús Owen and colleagues, with an educational torrey from [employer]. Physical exam (Primary Care) Vital Signs: Last Vital Signs Pulse 78 07/30/24 09:42 BP 114/62 07/30/24 09:42 Pulse Ox 98 07/30/24 09:42 Oxygen Delivery Method Room Air 07/30/24 09:42 BMI result Body Mass Index 33.1 Tobacco/Smoking Status: Tobacco use Status Tobacco use date assessed 07/30/24 07/30/24 09:44 Patient Tobacco Use Status Former Tobacco user 07/30/24 09:44 Tobacco use type Cigarette 07/30/24 09:44 e-Cigarette/Vaping Use Never Used 07/30/24 09:44 PHQ-9: PHQ-9 Score PHQ-9: Total score 0 07/30/24 09:44 Depression Screening Interpretation: Negative Thrive Assessment: Date of Thrive Assessment Date Thrive assessed 07/30/24 07/30/24 09:44 Currently or been in a relationship where the following occur: No concerns reported Const General: alert; No acute distress Eyes Conjunctivae: conjunctivae normal Resp Auscultation: clear to auscultation bilaterally Cardio Rate: regular rate Rhythm: regular rhythm GI Inspection: Yes normal to inspection Extrem General: Yes normal to inspection and No edema Coding Level of Care Code Est Pt Level 4 (89320) Complex EM visit Add On G2211 Diagnoses Obesity (BMI 30-39.9) E66.9 Impaired glucose tolerance R73.02 Colon cancer screening Z12.11 Assessment & Plan Assessment & Plan (1) Obesity (BMI 30-39.9): Code(s): E66.9 - Obesity, unspecified Category: Medical Plan: Continue with diet and exercise (2) Impaired glucose tolerance: Code(s): R73.02 - Impaired glucose tolerance (oral) Category: Medical Plan: Decrease the amount of carbohydrate intake, pasta, bread, rice and potatoes are all sugar and that is aside from all the sweet stuff, remember that fruits are good but they are Sweet also. (3) Colon cancer screening: Comment: Referred for screening colonoscopy however recent cardiac event undergoing cardiac evaluation-history unclear Will hold off at this time Code(s): Z12.11 - Encounter for screening for malignant neoplasm of colon Category: Medical Plan: Gastroenterology asking for Cardiology evaluation. Cardiac catheterization done earlier last year normal coronaries! Orders: Orders Hemoglobin A1c Today R73.02 - Impaired glucose tolerance (oral) Thyroid Stimulating Hormone Today R73.02 - Impaired glucose tolerance (oral) Complete Blood Count Auto Diff Today R73.02 - Impaired glucose tolerance (oral) Vitamin B12 and Folate Today R73.02 - Impaired glucose tolerance (oral) Comprehensive Met. Panel Today R73.02 - Impaired glucose tolerance (oral) Free T4 (Free Thyroxine) Today R73.02 - Impaired glucose tolerance (oral) Ferritin Today R73.02 - Impaired glucose tolerance (oral) Reticulocyte Count Today R73.02 - Impaired glucose tolerance (oral) IRON PROFILE Today R73.02 - Impaired glucose tolerance (oral) Referrals Cardiology Referral R07.9 - Chest pain, unspecified
[2024-07-30 09:42] VITALS: BP 114/62; PULSE 78; O2SAT 98; BMI 33.1
== END 2024-07-30 10:23 | disposition home or self-care (01) ==
PROVIDERS: PCP Internal Medicine; Visit Provider Internal Medicine
DX: R73.02 Impaired glucose tolerance (oral) (principal); E66.9 Obesity, unspecified; Z12.11 Encounter for screening for malignant neoplasm of colon; Z68.33 Body mass index [BMI] 33.0-33.9, adult

== ENCOUNTER → 2024-07-30 09:37 | Outpatient (BNVA) | payer OTHER, SELFPAY | PROVIDERS: PCP Internal Medicine; Visit Provider Internal Medicine | DX: R73.02 Impaired glucose tolerance (oral) (principal); E66.9 Obesity, unspecified | CPT/HCPCS: 96127; 99212 ==

== ENCOUNTER 2024-07-31 08:08 | Outpatient (REF) | payer OTHER, SELFPAY ==
[2024-07-31 08:26] LABS: MANUAL DIFF FLAG NO
[2024-07-31 09:03] LABS: Basophils Absolute Auto 0.1 X10*3/uL (0.0-0.2); Basophils Percent Auto 0.7 % (0-2); Eosinophils Absolute Auto 0.3 X10*3/uL (0.0-0.4); Eosinophils Percent Auto 4.5 % (0-4); Hematocrit 37.7 % (37.0-47.0); Hemoglobin 11.8 g/dl (12.0-16.0); Imm Gran Abs Auto 0.02 X10*3/uL (0.00-0.03); Imm Gran Pct Auto 0.3 % (0.0-0.4); Immature Retic Fraction 11.4 % (3.0-15.9); Lymphocytes Absolute Auto 2.1 X10*3/uL (1.2-4.9); Lymphocytes Percent Auto 26.9 % (20-40); Mean Corpuscular HGB Conc 31.3 g/dl (31.0-35.0); Mean Corpuscular Hemoglobin 26.8 pg (27.0-33.0); Mean Corpuscular Volume 85.7 fL (80.0-98.0); Mean Platelet Volume 9.5 fL (9.4-12.3); Monocytes Absolute Auto 0.5 X10*3/uL (0.1-1.2); Monocytes Percent Auto 6.2 % (2-11); Neutrophils Absolute Auto 4.7 x10*3/uL (2.0-8.3); Neutrophils Percent Auto 61.4 % (45-73); Platelet Count 291 X10*3/uL (160-400); Red Cell Distribution Width 13.5 % (11.0-16.0); Retic HGB Equivalent 28.9 pg (30.0-35.0); Reticulocyte Percent 1.1 % (0.5-1.8); Reticulocytes Absolute 0.049 X10*6/uL (0.026-0.095); White Blood Count 7.6 X10*3/uL (4.8-10.8)
[2024-07-31 09:13] LABS: Estimated Average Glucose 111 mg/dL; Hemoglobin A1c % 5.5 % (<6.0)
[2024-07-31 09:39] LABS: Alanine Aminotransferase 10 U/L (0-31); Albumin Level 4.1 g/dL (3.5-5.0); Alkaline Phosphatase 107 U/L (39-117); Anion Gap 12 (12-20); Aspartate Amino Transferase 20 U/L (5-31); Bilirubin Total 0.4 mg/dL (0.0-1.0); Blood Urea Nitrogen 11 mg/dL (9-16); Calcium 8.6 mg/dL (8.4-10.2); Carbon Dioxide 23 mmol/L (22-29); Chloride 109 mmol/L (96-108); Estimated Glomerular Filt Rate > 60; Glucose Random 115 mg/dL (60-115); Iron 65 mcg/dL (30-160); Percent Iron Saturation 23 % (15-50); Potassium 3.7 mmol/L (3.3-5.1); Sodium 140 mmol/L (135-145); Total Iron Binding Capacity 280 mcg/dL (228-428); Total Protein 7.7 g/dL (6.5-8.0); Unsaturated Iron Binding 215 ug/dL
[2024-07-31 09:48] LABS: Ferritin 27 ng/mL (10-250); Free T4 (Free Thyroxine) 1.15 ng/dL (0.71-1.85)
[2024-07-31 10:03] LABS: Folate 7.1 ng/mL (> or = 4.0); Vitamin B12 294 pg/mL (200-900)
== END 2024-07-31 08:09 | disposition home or self-care (01) ==
LOC: HO.LAB 08:08
PROVIDERS: PCP Internal Medicine; Visit Provider Internal Medicine
DX: R73.02 Impaired glucose tolerance (oral) (principal)
CPT/HCPCS: 36415; 80053; 82607; 82728; 82746; 83036; 83540; 84439; 84443; 85025; 85045

== ENCOUNTER 2024-08-08 10:36 | Outpatient (AMB) | payer OTHER, SELFPAY ==
[2024-08-08 11:12] VITALS: BP 106/78; PULSE 62; O2SAT 100; BMI 33.9
--- NOTE | 2024-08-08 11:12 | AM.OFFWIN_ITS ---
Intake Vital Signs 3 08/08/24 11:12 Height 5 ft 3 in Weight 191 lb 6 oz BMI 33.9 BP 106/78 Blood Pressure Location Rt brachial Position Sitting Pulse 62 Pulse Source Pulse Oximeter Pulse Oximetry (%) 100 Oxygen Delivery Method Room Air Intake Visit Reasons: EP LT eye concerns Patient Tobacco Use Status: Former Tobacco user Allergies No Known Allergies Allergy (Verified 08/08/24 11:14) Medication List - Last Reconciled 08/08/24 by Yoel Luong MD polymyxin B sulf-trimethoprim 10,000 unit- 1 mg/mL 1 drp ophthalmic (eye) QID 5 days trazodone 50 mg PO BEDTIME PRN Do you need a note to return to daycare/school/sports/work: No HPI EP LT eye concerns 2 HPI0 Details Chief Complaint - The patient reports discomfort and darcie rry vision in the left eye. History of Present Illness - The patient is a 49-year-old female pr esenting with ocular discomfort and blurry vision in the left eye. - Onset of symptoms was yesterday with a feeling shane to a foreign body sensation, accompanied by mild itching. - Symptoms progressed despite applicatio n of warm water, leading to worsened swelling and inflammation by this morning. - The patient experiences blurry vision and reports sensitivity to sunlight but no significant discharge. - There is no use of contact lenses, tim eup, or reported allergies. Rubbing was noted only once due to itching. - Scheduled consultation with an ophthal mologist on August 25. - Ophthalmic drops were prescribed, with instructions to avoid rubbing and use cold water if necessary. Plan The patient exhibits symptoms suggestive of conjunctivitis, including ocular discomfort and blurred vision with mild swelling. It is recommended to manage symptoms through prescribed ophthalmic drops, with specific instructions not to apply warm water or rub the affected eye. If needed, cold water may be applied for relief. The patient is already scheduled for follow-up with an eyelet row marker which will provide further guidance. Patient Instructions - Use the prescribed eye drops as direct ed. - Avoid rubbing the affected eye to prev ent further irritation. - Apply cold water for comfort if necess evangelina. - Ensure not to apply warm water to the eye. - Attend the ophthalmology appointment o n August 25 for further evaluation. - Monitor for any significant changes or worsening in symptoms and seek care if needed. Review of Systems - Eyes: Reports blurry vision and sensat ion of swelling in the left eye; denies significant discharge. - Neurological: Denies hypersensitivity to normal room light but mild discomfort with sunlight exposure. Constitutional: No fever no chills Respiratory: no Cough, no shortness a breath Cardiovascular: no palpitations, no chest pains gastrointestinal: No nausea no vomiting no diarrhea SODA MAKER: No headache no blurring of vision skin: No rash extremities: As per history PENDING SALE TO [facility] Medical History Abnormal perimenopausal bleeding Allergic rhinitis Generalized anxiety disorder Vitamin D deficiency Lumbar herniated disc Obesity (BMI 30-39.9) Migraine headache Surgical History Hx of cardiac catheterization History of back surgery History of tubal ligation Family History Father Myocardial infarction History of heart artery stent CVD (cardiovascular disease) HTN (hypertension) Mother No problems noted. 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 Mild redness and inflammation of eyelids slight discharge medial aspect cloudy, cornea clear pupils reactive to light, no difficulty looking at light Resp Effort & Inspection: normal respiratory effort and able to speak in complete sentences Neuro General: patient oriented x3 Psych Mental Status: mental status grossly normal Assessment & Plan Assessment & Plan (1) Conjunctivitis, left eye: Code(s): H10.9 - Unspecified conjunctivitis Plan Plan The patient exhibits symptoms suggestive of conjunctivitis, including ocular discomfort and blurred vision with mild swelling. It is recommended to manage symptoms through prescribed ophthalmic drops, with specific instructions not to apply warm water or rub the affected eye. If needed, cold water may be applied for relief. The patient is already scheduled for follow-up with an eyelet row marker which will provide further guidance. Patient Instructions - Use the prescribed eye drops as directed. - Avoid rubbing the affected eye to prevent further irritation. - Apply cold water for comfort if necessary. - Ensure not to apply warm water to the eye. - Attend the ophthalmology appointment on August 25 for further evaluation. - Monitor for any significant changes or worsening in symptoms and seek care if needed. Medications: New 2 polymyxin B sulf-trimethoprim 10,000 unit- 1 mg/mL while awake; do not exceed 6 doses in 24 hours 1 drp ophthalmic (eye) QID 5 days 10 mL 0RF Coding Level of Care Code Est Pt Level 3 (69000) Diagnoses Conjunctivitis, left eye H10.9
== END 2024-08-08 12:38 | disposition home or self-care (01) ==
PROVIDERS: PCP Internal Medicine; Visit Provider Internal Medicine
DX: H10.9 Unspecified conjunctivitis (principal)

== ENCOUNTER → 2024-08-08 10:36 | Outpatient (BNVA) | payer OTHER, SELFPAY | PROVIDERS: PCP Internal Medicine; Visit Provider Internal Medicine | DX: H10.9 Unspecified conjunctivitis (principal) | CPT/HCPCS: 99212 ==

== ENCOUNTER 2024-11-05 11:06 | Outpatient (AMB) | payer OTHER, SELFPAY ==
[2024-11-05 11:22] VITALS: BP 118/78; PULSE 59; O2SAT 98; BMI 32.9
--- NOTE | 2024-11-05 11:22 | A.OFFPC_ITS ---
Vital Signs 11/05/24 11:22 Height 5 ft 3 in Weight 186 lb BMI 32.9 BP 118/78 Blood Pressure Location Lt brachial Position Sitting Pulse 59 Pulse Source Pulse Oximeter Pulse Oximetry (%) 98 Oxygen Delivery Method Room Air Intake Visit Reasons: IGT Allergies No Known Allergies Allergy (Verified 11/05/24 11:23) Medication List - Last Reconciled 11/05/24 by Klaus Pineda MD meloxicam 15 mg PO DAILY Tobacco use date assessed: 07/30/24 Dental Screening Dental Screen Date: 07/30/24 [facility] Medical History Abnormal perimenopausal bleeding Allergic rhinitis Generalized anxiety disorder Vitamin D deficiency Lumbar herniated disc Obesity (BMI 30-39.9) Migraine headache Surgical History Hx of cardiac catheterization History of back surgery History of tubal ligation Family History Father Myocardial infarction History of heart artery stent CVD (cardiovascular disease) HTN (hypertension) Mother No problems noted. 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 1. Little interest or pleasure in doing things: not at all 2. Feeling down, depressed, or hopeless: not at all 3. Trouble falling or staying asleep, or sleeping too much: not at all 4. Feeling tired or having little energy: not at all 5. Poor appetite or overeating: not at all 6. Feeling bad about yourself - or that you are a failure or have let yourself or your family down: not at all 7. Trouble concentrating on things, such as reading the newspaper or watching television: not at all 8. Moving or speaking so slowly that other people could have noticed. Or the opposite - being so fidgety or restless that you have been moving around a lot more than usual: not at all 9. Thoughts that you would be better off or of hurting yourself in some way: not at all Total score: 0 Depression Screening Interpretation: Negative Depression Screening Done: Yes Source: Developed by Drs. Glenn Varela, Wanda Jasso, Jesús Owen and colleagues, with an educational torrey from [employer]. Thrive Questionnaire Date Thrive assessed: 07/30/24 AVERY-7 AMB Questionnaire AVERY-7 Date AVERY - 7 assessed: 07/30/24 Source: Developed by Drs. Glenn Varela, Wanda Jasso, Jesús Owen and colleagues, with an educational torrey from [employer]. Physical exam (Primary Care) Vital Signs: Last Vital Signs Pulse 59 11/05/24 11:22 BP 118/78 11/05/24 11:22 Pulse Ox 98 11/05/24 11:22 Oxygen Delivery Method Room Air 11/05/24 11:22 BMI result Body Mass Index 32.9 Tobacco/Smoking Status: Tobacco use Status Tobacco use date assessed 07/30/24 11/05/24 11:22 Patient Tobacco Use Status Former Tobacco user 11/05/24 11:22 Tobacco use type Cigarette 11/05/24 11:22 e-Cigarette/Vaping Use Never Used 11/05/24 11:22 PHQ-9: PHQ-9 Score PHQ-9: Total score 0 11/05/24 12:10 Depression Screening Interpretation: Negative Thrive Assessment: Date of Thrive Assessment Date Thrive assessed 07/30/24 11/05/24 11:22 Const General: alert; No acute distress Eyes Conjunctivae: conjunctivae normal Resp Auscultation: clear to auscultation bilaterally Cardio Rate: regular rate Rhythm: regular rhythm GI Inspection: Yes normal to inspection Extrem General: Yes normal to inspection and No edema Coding Level of Care Code Est Pt Level 4 (43520) Diagnoses Obesity (BMI 30-39.9) E66.9 Generalized anxiety disorder F41.1 Impaired glucose tolerance R73.02 Assessment & Plan Assessment & Plan (1) Obesity (BMI 30-39.9): Code(s): E66.9 - Obesity, unspecified Category: Medical Plan: Diet and exercise (2) Generalized anxiety disorder: Code(s): F41.1 - Generalized anxiety disorder Category: Medical Plan: Stable (3) Impaired glucose tolerance: Code(s): R73.02 - Impaired glucose tolerance (oral) Category: Medical Plan: Decrease the amount of carbohydrate intake, pasta, bread, rice and potatoes are all sugar and that is aside from all the sweet stuff, remember that fruits are good but they are Sweet also. Plan History of Present Illness Health Maintenance - Mammogram in June 2024. - Colonoscopy reminder for future screening. - Ophthalmology visit in August for diabetes management. - LDL cholesterol last measured in January 2024 at 120 mg/dL. - Encouraged diet and exercise for weight management and stability. - Plans for diabetes follow-up and monitoring. Social History - Denies current cannabis use; apparent environmental exposure. - Cigarette smoking noted. 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 Review of Systems - General: Reports a five-pound weight loss. - Neurological: Reports continuing migraine headaches, sleeping well. - Gastrointestinal: Denies changes in bowel movements. - Genitourinary: Reports nocturnal urination twice per night. - Musculoskeletal: Reports chronic low back pain. Physical Exam Results - Labs: Mild anemia with hemoglobin at 11.8 g/dL, low B12, normal folic acid. - Labs: Fasting blood glucose at 115 mg/dL, hemoglobin A1c at 5.5%. - Labs: LDL cholesterol at 120 mg/dL. 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 Plan Manage migraines with occasional Tylenol and Advil, avoid regular use. Monitor fasting glucose and A1c, reinforcing lifestyle changes for prediabetes. Use Meloxicam for arthritis-related back pain as needed, with food. Arrange labs to assess anemia and levels later. Continue health maintenance, ensuring follow- ups. Discussed with the patient the effects of environmental cannabis exposure; advised against further smoking. Patient was informed and verbally consented to the use of an ambient scribe for clinic note documentation during this visit. Discussion Notes I discussed with the patient her chronic conditions, emphasizing the importance of lifestyle modifications to manage her prediabetes and obesity. I highlighted the risks and benefits of Meloxicam for her chronic back pain, ensuring it is only used when necessary and with food. We reviewed her concerns about a diabetes diagnosis and affirmed current prediabetes status with stable A1c levels. I referred her to continue with regular preventative screenings and blood work in a few months. We discussed environmental cannabis exposure and its potential impact on weight management and health, and I advised against smoking. Follow-up appointments were planned, including scheduling with cardiology and gastroenterology. Patient Instructions - Continue [id number] headache medications as needed, but avoid excessive use. - Maintain your current diet and exercise plan to support weight loss and manage prediabetes. - Take Meloxicam only when back pain is bothersome and always with food. - Schedule a follow-up blood test three months from now. - Continue regular screenings, including upcoming colonoscopy. - Avoid smoking cannabis; stay cautious of environmental exposure effects. - Schedule and attend upcoming cardiology and gastroenterology appointments. Orders: Orders Hemoglobin A1c 3 Months R73.02 - Impaired glucose tolerance (oral) Free T4 (Free Thyroxine) 3 Months R73.02 - Impaired glucose tolerance (oral) Thyroid Stimulating Hormone 3 Months R73.02 - Impaired glucose tolerance (oral) Lipid Panel 3 Months E78.00 - Pure hypercholesterolemia, unspecified, R73.02 - Impaired glucose tolerance (oral) Vitamin B12 and Folate 3 Months R73.02 - Impaired glucose tolerance (oral) Vitamin D 25-OH Total 3 Months R73.02 - Impaired glucose tolerance (oral) Complete Blood Count Auto Diff 3 Months R73.02 - Impaired glucose tolerance (oral) Comprehensive Met. Panel 3 Months R73.02 - Impaired glucose tolerance (oral) Ferritin 3 Months R73.02 - Impaired glucose tolerance (oral) IRON PROFILE 3 Months R73.02 - Impaired glucose tolerance (oral) Reticulocyte Count 3 Months R73.02 - Impaired glucose tolerance (oral) UA CC w/rflx Micro + Cult 3 Months R30.0 - Dysuria, R73.02 - Impaired glucose tolerance (oral) Medications: New meloxicam 15 mg PO DAILY 30 tabs 1RF G89.29 - Other chronic pain, M54.50 - Low back pain, unspecified
== END 2024-11-05 12:19 | disposition home or self-care (01) ==
LOC: HO.HMCH 11:07
PROVIDERS: PCP Internal Medicine; Visit Provider Internal Medicine
DX: R73.02 Impaired glucose tolerance (oral) (principal); F41.1 Generalized anxiety disorder; E66.9 Obesity, unspecified; Z68.32 Body mass index [BMI] 32.0-32.9, adult

== ENCOUNTER → 2024-11-05 11:06 | Outpatient (BNVA) | payer OTHER, SELFPAY | PROVIDERS: PCP Internal Medicine; Visit Provider Internal Medicine | DX: R73.02 Impaired glucose tolerance (oral) (principal); F41.1 Generalized anxiety disorder; E66.9 Obesity, unspecified; Z68.32 Body mass index [BMI] 32.0-32.9, adult | CPT/HCPCS: 99212 ==

== ENCOUNTER 2024-11-19 08:59 | Outpatient (AMB) | payer OTHER, SELFPAY ==
--- NOTE | 2024-11-19 09:26 | AM.OFFVISNUR ---
Intake Visit Reasons: TB Test Allergies No Known Allergies Allergy (Verified 11/05/24 11:23) Office Meds tuberculin PPD 5 tub. unit/0.1 mL intradermal injection solution Performing Provider: Klaus Pineda MD [facility] Administered by: Judy Ritchie LPN on 11/19/24 09:26 Dose Route Admin Location Dispensed Lot Number Expiration Date NDC Toilet Attendant 0.1 mL intradermal left forearm 0.1 mL [id number] 06/21/27 86832-699-86 [employer] Assessment & Plan Assessment & Plan Orders: Orders AMB PPD Planted Today Z11.1 - Encounter for screening for respiratory tuberculosis Medications: New tuberculin PPD 0.1 mL intradermal ONCE 0.1 mL 0RF Z11.1 - Encounter for screening for respiratory tuberculosis Coding
== END 2024-11-19 09:30 | disposition home or self-care (01) ==
LOC: HO.HMCH 09:00
PROVIDERS: PCP Internal Medicine; Visit Provider Internal Medicine
DX: Z11.1 Encounter for screening for respiratory tuberculosis (principal)

== ENCOUNTER → 2024-11-19 08:59 | Outpatient (BNVA) | payer OTHER, SELFPAY | PROVIDERS: PCP Internal Medicine; Visit Provider Internal Medicine | DX: Z11.1 Encounter for screening for respiratory tuberculosis (principal) | CPT/HCPCS: 86580 ==

== ENCOUNTER → 2024-11-21 10:08 | Outpatient (BNVA) | payer OTHER, SELFPAY | PROVIDERS: PCP Internal Medicine; Visit Provider Internal Medicine ==

== ENCOUNTER 2025-03-17 07:11 | Outpatient (REF) | payer OTHER, SELFPAY ==
--- OUTSIDE RECORDS SUMMARY | 2025-03-17 07:15 | XMS_ITS | Clinical Summary ---
Author Organization [facility] Address [address] [place] [address] Phone Care Team Providers Care Power Generation Technician Name Role Phone Pcp, Unknown Primary Care Provider Unavailabl e Immunizations Immunization Administration Dates Next Due COVID-19 (Pre-05/14) Lana Vaccine, [id number], P F 08/30/2021,03/30/2021 Influenza, Unspecified Formulation 08/07/2022 Td (adult),2 Lf Tetanus Toxoid, PF, Adsorbed 02/2015 Social History Tobacco Use Types Packs/Day Years Used Date Smoking Tobacco: Never Assessed Education Answer Date Recorded Are you interested in more education? Not on kiersten e 11/18/2022 Are you concerned about learning? Not on file 11/18/2022 No 11/18/2022 No 11/18/2022 Digital Access Answer Date Recorded No 12/19/2022 No 12/19/2022 Reliable internet access at home? Not on file 12/19/2022 Device with a working camera? Not on file Comments Unknown Sex and Gender Information Value Date Recorded Sex Assigned at Not on file Legal Sex Female 3:44 PM EST Gender Identity Not on file Sexual Orientation Not on file Plan of Treatment Health Maintenance Due Date Last Done Comments LIPID PANEL 1977 DEPRESSION SCREENING 1989 SMOKING Hx and SMOKELESS TOBACCO SCREENING 1990 HEPATITIS C SCREENING 1995 HIV ONE-TIME SCREENING (18-6 5 YEARS) 1995 PAP SMEAR 1998 MAMMOGRAM 2017 COLOGUARD 2022 COLONOSCOPY 2022 COLORECTAL CANCER SCREENING 2022 FIT TEST 2022 FOBT 2022 SIGMOIDOSCOPY 2022 VIRTUAL COLONOSCOPY 2022 COVID-19 VACCINE (2023-2 5 season) 2024 08/30/2021, 03/30/2021 Adult Td,Tdap Booster 01/27/2025 01/27/2015 HEPATITIS A VACCINES Aged Out No long er eligible based on patient's age to complete this topic HIB VACCINES Aged Out No longer eligi ble based on patient's age to complete this topic MENINGOCOCCAL VACCINES (ACWY) Aged Out No longer eligible based on patient's age to complete this topic MENINGOCOCCAL VACCINES (B) Aged Out N o longer eligible based on patient's age to complete this topic PNEUMOCOCCAL VACCINES (0-49 years) Aged Out No longer eligible b ased on patient's age to complete this topic Medical Devices Not on file Care Teams Power Generation Technician Relationship Specialty Start Date End Date Pcp, Unknown PCP - General 07/07/20 Additional Source Comments The information contained in this document represents components of the legal health record. It is not the complete legal health record.[facility]
[2025-03-17 07:26] LABS: MANUAL DIFF FLAG NO
[2025-03-17 08:12] LABS: Hematocrit 35.3 % (37.0-47.0); Hemoglobin 11.1 g/dl (12.0-16.0); Imm Gran Abs Auto 0.02 X10*3/uL (0.00-0.03); Imm Gran Pct Auto 0.3 % (0.0-0.4); Lymphocytes Absolute Auto 2.3 X10*3/uL (1.2-4.9); Mean Corpuscular HGB Conc 31.4 g/dl (31.0-35.0); Mean Corpuscular Hemoglobin 26.8 pg (27.0-33.0); Mean Corpuscular Volume 85.3 fL (80.0-98.0); NRBC Abs Auto 0.000 X10*3/uL (0.0-0.012); NRBC Pct Auto 0.0 /100WBC (0.0-0.2); Platelet Count 280 X10*3/uL (160-400); Red Blood Count 4.14 X10*6/uL (4.20-5.50); Reticulocytes Absolute 0.052 X10*6/uL (0.026-0.095); White Blood Count 7.3 X10*3/uL (4.8-10.8)
[2025-03-17 08:18] LABS: Hemoglobin A1C 123.3757 umol/L; Total Hemoglobin (HGBA1C) 2947.1624 umol/L
[2025-03-17 08:40] LABS: Appearance Urine Clear; Glucose Urine UA Negative (Negative); PH 6.0 (5.0-9.0); Specific Gravity - Urine 1.025 (1.005-1.025)
[2025-03-17 08:44] LABS: Alanine Aminotransferase 10 U/L (0-31); Albumin Level 4.1 g/dL (3.5-5.0); Alkaline Phosphatase 96 U/L (39-117); Anion Gap 10 (12-20); Aspartate Amino Transferase 18 U/L (5-31); Blood Urea Nitrogen 9 mg/dL (9-16); Calcium 9.0 mg/dL (8.4-10.2); Carbon Dioxide 27 mmol/L (22-29); Chloride 108 mmol/L (96-108); Cholesterol 171 mg/dL (<200); Estimated Glomerular Filt Rate > 60; HDL Cholesterol 59 mg/dL (>40); Iron 51 mcg/dL (30-160); Percent Iron Saturation 19 % (15-50); Potassium 4.0 mmol/L (3.3-5.1); Sodium 141 mmol/L (135-145); Total Iron Binding Capacity 268 mcg/dL (228-428); Total Protein 7.1 g/dL (6.5-8.0); Triglycerides 63 mg/dL (<150); Unsaturated Iron Binding 217 ug/dL
[2025-03-17 09:03] LABS: Ferritin 23 ng/mL (10-250); Free T4 (Free Thyroxine) 0.93 ng/dL (0.71-1.85); Thyroid Stimulating Hormone 2.27 uIU/mL (0.32-4.0)
[2025-03-17 09:13] LABS: Vitamin B12 288 pg/mL (200-900)
[2025-03-17 09:28] LABS: Folate 7.0 ng/mL (> or = 4.0)
[2025-03-20 18:24] LABS: TS Negative Control Passed; TS Panel A 0; TS Panel B 0; TS Positive Control Passed; TSpotTB Negative (Negative)
== END 2025-03-17 07:12 | disposition home or self-care (01) ==
LOC: HO.LAB 07:11
PROVIDERS: PCP Internal Medicine; Visit Provider Internal Medicine
DX: Z11.1 Encounter for screening for respiratory tuberculosis (principal); R73.02 Impaired glucose tolerance (oral); E78.00 Pure hypercholesterolemia, unspecified; R30.0 Dysuria; L65.9 Nonscarring hair loss, unspecified
CPT/HCPCS: 36415; 80053; 80061; 81003; 82306; 82607; 82728; 82746; 83036; 83540; 84439; 84443; 85025; 85045; 86481

== ENCOUNTER 2025-03-18 10:59 | Outpatient (AMB) | payer OTHER, SELFPAY ==
[2025-03-18 11:07] VITALS: BP 118/68; PULSE 74; O2SAT 98; BMI 34.9
--- NOTE | 2025-03-18 11:07 | A.OFFPC_ITS ---
Vital Signs 03/18/25 11:07 Height 5 ft 3 in Weight 197 lb BMI 34.9 BP 118/68 Blood Pressure Location Lt brachial Position Sitting Pulse 74 Pulse Source Pulse Oximeter Pulse Oximetry (%) 98 Oxygen Delivery Method Room Air Intake Visit Reasons: PE Allergies No Known Allergies Allergy (Verified 03/18/25 11:07) Medication List - Last Reconciled 03/18/25 by Klaus Pineda MD Tobacco use date assessed: 07/30/24 Dental Screening Dental Screen Date: 07/30/24 HPI PE HPI Details feeling dizzy has frequency PFSH Medical History Abnormal perimenopausal bleeding Allergic rhinitis Generalized anxiety disorder Vitamin D deficiency Lumbar herniated disc Obesity (BMI 30-39.9) Migraine headache Surgical History Hx of cardiac catheterization History of back surgery History of tubal ligation Family History (Updated 03/18/25 @ 11:34 by Klaus Pineda MD) Father Myocardial infarction History of heart artery stent CVD (cardiovascular disease) HTN (hypertension) Mother No problems noted. 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 1. Little interest or pleasure in doing things: several days 2. Feeling down, depressed, or hopeless: not at all 3. Trouble falling or staying asleep, or sleeping too much: not at all 4. Feeling tired or having little energy: not at all 5. Poor appetite or overeating: not at all 6. Feeling bad about yourself - or that you are a failure or have let yourself or your family down: not at all 7. Trouble concentrating on things, such as reading the newspaper or watching television: not at all 8. Moving or speaking so slowly that other people could have noticed. Or the opposite - being so fidgety or restless that you have been moving around a lot more than usual: not at all 9. Thoughts that you would be better off or of hurting yourself in some way: not at all Total score: 1 Depression Screening Interpretation: Positive Depression Screening Done: Yes Source: Developed by Drs. Glenn Varela, Wanda Jasso, Jesús Owen and colleagues, with an educational torrey from [employer]. Thrive Questionnaire Date Thrive assessed: 07/30/24 I am a: Patient What is your living situation today?: I have a steady place to live Within the past 12 months, did the food you bought not last and you didn't have the money to get more?: Sometimes True Within the past 12 months, did you worry whether your food would run out before you got money to buy more?: Sometimes True Do you have trouble paying for medicines?: I choose not to answer this question Do you have trouble getting transportation to medical appointments?: No Do you have trouble paying your heating and electricity bill?: Yes Do you have trouble taking care of your child, family member or friend?: I choose not to answer this question Do you have trouble with day-to-day activities such as bathing, preparing meals, shopping, managing finances, etc.?: No Are you currently unemployed and looking for a job?: No Are you interested in more education?: No Please select the resources that you would like help with: None Currently or been in a relationship where the following occur: No concerns r eported THRIVE Score: 3 AUDIT C Alcohol Use Questionnaire (AUDIT-C) 1. How often do you have a drink containing alcohol?: Never 3. How often do you have six or more drinks on one occasion?: Never Total Score: 0 AVERY-7 AMB Questionnaire AVERY-7 Date AVERY - 7 assessed: 07/30/24 Feeling nervous, anxious, or on edge: 0 = Not at all Not being able to stop or control worryin = Not at all Worrying too much about different things: 0 = Not at all Trouble relaxin = Not at all Being so restless that it is hard to sit still: 0 = Not at all Becoming easily annoyed or irritable: 0 = Not at all Feeling afraid as if something awful might happen: 0 = Not at all Total AVERY-7 score (0-4 normal; 5-9 mild; 10-14 moderate; 15-21 severe): 0 Source: Developed by Drs. Glenn Varela, Wanda Jasso, Jesús Owen and colleagues, with an educational torrey from [employer]. Review of Systems Const Denies poor appetite and Denies weakness Eyes Denies no additional complaints ENT Reports Normal hearing present, Denies dizziness, Denies nasal congestion, Denies tinnitus and Denies sore throat Card Denies chest pain, Denies syncope, Denies rapid heart rate and Denies dyspnea Resp Denies cough and Denies dyspnea GI Denies change in stool character, Reports constipation, Denies diarrhea, Denies nausea and Denies vomiting Denies urinary frequency, Denies difficulty voiding and Denies dysuria Neuro Reports Normal hearing present, Denies confusion, Denies dizziness, Denies syncope and Denies weakness Psych Denies confusion Physical exam (Primary Care) Vital Signs: Last Vital Signs Pulse 74 03/18/25 11:07 BP 118/68 03/18/25 11:07 Pulse Ox 98 03/18/25 11:07 Oxygen Delivery Method Room Air 03/18/25 11:07 BMI result Body Mass Index 34.9 Tobacco/Smoking Status: Tobacco use Status Tobacco use date assessed 07/30/24 03/18/25 11:08 Patient Tobacco Use Status Former Tobacco user 03/18/25 11:35 Tobacco use type Cigarette 03/18/25 11:35 e-Cigarette/Vaping Use Never Used 03/18/25 11:35 PHQ-9: PHQ-9 Score PHQ-9: Total score 1 03/18/25 11:32 Depression Screening Interpretation: Positive Thrive Assessment: Date of Thrive Assessment Date Thrive assessed 07/30/24 03/18/25 11:08 Currently or been in a relationship where the following occur: No concerns reported Const General: No confusion Orientation/consciousness: No confusion HENMT Head: Yes normocephalic Ears: external ears normal and TM's normal bilaterally Face and sinus: Yes normal facial exam Mouth: moist mucous membranes Throat: Yes tonsils normal Eyes Conjunctivae: conjunctivae normal Pupils: Equal, round and reactive pupils present and Pupil accommodation reflex normal Direct Ophthalmoscopy: normal light reflex Neck Neck: No lymphadenopathy Thyroid: Thyroid normal Chest Chest palpation & inspection: normal inspection of the chest Resp Effort & Inspection: normal respiratory effort and no audible wheezes Auscultation: clear to auscultation bilaterally, no crackles, no wheezes and lung sounds not diminished Cardio Rate: regular rate Rhythm: regular rhythm Peripheral pulses: radial pulses present and dorsalis pedis present GI Palpation (GI): no masses Auscultation: normal bowel sounds and normoactive bowel sounds Rectal Exam - Female: deferred Skin General skin exam: no rashes or lesions noted Rashes: no rashes Neuro General: No confusion Cranial nerves: Yes Equal, round and reactive pupils present and Yes Normal hearing present Cognition (Neuro): normal cognition Gait exam (Neuro): Normal gait present Motor exam (neuro): 5/5 motor strength present throughout Deep tendon reflexes (DTR's): Right brachioradialis reflex intensity grade: 2+, Left brachioradialis reflex intensity grade: 2+, Right patellar reflex intensity grade: 2+ and Left patellar reflex intensity grade: 2+ Extrem General: No edema Coding Level of Care Code Est Pt Prev Care 40-64y(40709) Diagnoses Annual physical exam Z00.00 Migraine with aura and without status migrainosus, not intractable G43.109 Intractability: not intractable Migraine type: with aura Status migrainosus presence: without status migrainosus Chronic low back pain M54.50; G89.29 Colon cancer screening Z12.11 Obesity (BMI 30-39.9) E66.9 Impaired glucose tolerance R73.02 Generalized anxiety disorder F41.1 Assessment & Plan Assessment & Plan (1) Annual physical exam: Code(s): Z00.00 - Encounter for general adult medical examination without abnormal findings Category: Medical Plan: Patient is advised to eat healthy, keep well hydrated, keep active and have adequate sleep. (2) Migraine headache: Code(s): G43.909 - Migraine, unspecified, not intractable, without status migrainosus Category: Medical Qualifiers: Intractability: not intractable Migraine type: with aura Status migrainosus presence: without status migrainosus Qualified Code(s): G43.109 - Migraine with aura, not intractable, without status migrainosus Plan: Keep well hydrated eat healthy and keep active (3) Chronic low back pain: Code(s): M54.50 - Low back pain, unspecified; G89.29 - Other chronic pain Category: Medical Plan: Lose the weight, keep active (4) Colon cancer screening: Comment: Referred for screening colonoscopy however recent cardiac event undergoing cardiac evaluation-history unclear Will hold off at this time Code(s): Z12.11 - Encounter for screening for malignant neoplasm of colon Category: Medical Plan: Patient is reminded about colonoscopy. Cardiac workup negative (5) Obesity (BMI 30-39.9): Code(s): E66.9 - Obesity, unspecified Category: Medical Plan: Diet and exercise (6) Impaired glucose tolerance: Code(s): R73.02 - Impaired glucose tolerance (oral) Category: Medical Plan: Decrease the amount of carbohydrate intake, pasta, bread, rice and potatoes are all sugar and that is aside from all the sweet stuff, remember that fruits are good but they are Sweet also. (7) Generalized anxiety disorder: Code(s): F41.1 - Generalized anxiety disorder Category: Medical Plan: Stable Plan History of Present Illness The patient is a 49-year-old female presenting for a physical examination and management of chronic conditions. The patient has a history of obesity, which has been a persistent issue. She previously received injections for weight management, but these were discontinued due to insurance issues. She reports excessive sweating, particularly in warm conditions, which exacerbates her discomfort. The patient has generalized anxiety disorder, which has been managed over time. There is no mention of current medication use for this condition. Anemia was identified in the patient's last blood work, with hemoglobin levels at 11.1 g/dL and hematocrit at 35.3%. The patient reports a history of heavy menstrual bleeding, which may contribute to her anemia. The patient has impaired glucose tolerance, with a recent hemoglobin A1c of 6.0%. She has a family history of diabetes and reports dietary habits that include high sugar intake, which may contribute to her condition. Vitamin D and B12 deficiencies were noted in recent lab results. The patient does not spend much time outdoors, which may contribute to her low vitamin D levels. The patient reports constipation, although she denies any current issues with bowel movements. Preventative care measures include a recommendation for a colonoscopy, which the patient has not yet undergone. Health Maintenance - Colonoscopy recommended for colorectal cancer screening - Dietary modifications to reduce sugar intake and manage glucose levels - Vitamin D supplementation advised due to deficiency - Vitamin B12 supplementation advised due to deficiency - Iron supplementation recommended to address anemia Social History - Employment: Patient is employed and reports being active at work, including walking and using stairs. - Substance Use: Patient denies current alcohol and tobacco use, quit smoking in 2004 or 2005. - Family History: Family history of esophageal cancer, lung cancer, leukemia, and heart disease. - Exercise: Patient reports walking regularly, tracking steps with an rosalee, achieving 5,000 to 7,000 steps daily. - Nutrition: Reports dietary habits include high sugar intake, with meals often consisting of coffee, Pop-Tarts, and occasional salads. Review of Systems - General: Reports fatigue, denies fever. - Cardiovascular: Denies chest pain, palpitations. - Respiratory: Denies dyspnea, cough. - Gastrointestinal: Reports frequent urination, denies nausea, vomiting, abdominal pain. - Neurological: Reports dizziness, denies headaches, syncope. Physical Exam General: Cooperative, healthy appearing, comfortable, no acute distress and well developed Orientation: Patient oriented x3 Limitations: No limitations Head: Normal to inspection Ears: Hearing grossly normal bilaterally Nose: Normal external nose present Face and sinus: Normal facial exam Eyes: Appearance normal, both eyes and all related structures Neck: Normal visual inspection and Yes full ROM Respiratory: Normal respiratory effort and able to speak in complete sentences. Clear to auscultation bilaterally Cardiovascular: Regular rate and rhythm. Normal S1 and S2 GI: Normal to inspection. Soft to palpation and nontender Skin: No rashes or lesions noted Neuro: Patient oriented x3 Extremities: Normal to inspection Results - Labs: Hemoglobin 11.1 g/dL, Hematocrit 35.3%, Vitamin D low, Vitamin B12 low, Hemoglobin A1c 6.0%, LDL cholesterol 100 mg/dL. - Tests: Cardiac catheterization showed no significant coronary artery disease, echocardiogram showed preserved left ventricular function. Plan Patient was informed and verbally consented to the use of an ambient scribe for clinic note documentation during this visit. 1. Obesity The patient has a history of obesity and previously received injections for weight management, which were discontinued due to insurance issues. A referral to a weight management program will be made to address this issue. 2. Generalized Anxiety Disorder The patient has a history of generalized anxiety disorder, but there is no current medication use reported for this condition. 3. Anemia The patient has anemia with a hemoglobin level of 11.1 g/dL and hematocrit of 35.3%. Iron supplementation is recommended to address this condition. 4. Impaired Glucose Tolerance The patient has impaired glucose tolerance with a hemoglobin A1c of 6.0%. Dietary modifications to reduce sugar intake and manage glucose levels are advised. 5. Vitamin D Deficiency The patient has vitamin D deficiency, and supplementation is advised. 6. Vitamin B12 Deficiency The patient has vitamin B12 deficiency, and supplementation is advised. 7. Constipation The patient reports constipation, but denies current issues with bowel movements. 8. Preventative Care: Colonoscopy A colonoscopy is recommended for colorectal cancer screening, which the patient has not yet undergone. Discussion Notes During the visit, I discussed the importance of managing obesity through a weight management program and addressed the patient's concerns about excessive sweating. We reviewed the patient's anemia and recommended iron supplementation. I emphasized the need for dietary modifications to manage impaired glucose tolerance and advised on vitamin D and B12 supplementation. The patient was reminded of the importance of undergoing a colonoscopy for colorectal cancer screening. Follow-up appointments and further testing were discussed to monitor the patient's progress. Patient Instructions - Follow up with weight management program as referred. - Take prescribed iron, vitamin D, and B12 supplements as directed. - Modify diet to reduce sugar intake and manage glucose levels. - Schedule and complete a colonoscopy for colorectal cancer screening. Orders: Orders IRON PROFILE 3 Months R73.02 - Impaired glucose tolerance (oral) Vitamin B12 and Folate 3 Months R73.02 - Impaired glucose tolerance (oral) Vitamin D 25-OH Total 3 Months R73.02 - Impaired glucose tolerance (oral) Complete Blood Count Auto Diff 3 Months R73.02 - Impaired glucose tolerance (oral) Comprehensive Met. Panel 3 Months R73.02 - Impaired glucose tolerance (oral) Hemoglobin A1c 3 Months R73.02 - Impaired glucose tolerance (oral) Ferritin 3 Months R73.02 - Impaired glucose tolerance (oral) Reticulocyte Count 3 Months R73.02 - Impaired glucose tolerance (oral) Referrals Medical Weight Management Referral E66.9 - Obesity, unspecified Medications: New ascorbate calcium (vitamin C) 500 mg PO DAILY 30 tabs 4RF D50.9 - Iron deficiency anemia, unspecified ferrous sulfate (FeroSul) 325 mg PO DAILY 90 tabs 1RF cyanocobalamin (vitamin B-12) 1,000 mcg PO DAILY 30 caps 3RF E53.8 - Deficiency of other specified B group vitamins cholecalciferol (vitamin D3) 50 mcg PO DAILY 90 caps 3RF 90 days E55.9 - Vitamin D deficiency, unspecified
--- OUTSIDE RECORDS SUMMARY | 2025-03-18 11:56 | XMS_ITS | Clinical Summary ---
Author Organization [facility] Address [address] [place] [address] Phone Care Team Providers Care Manager Mutual [employer] Name Role Phone Pcp, Unknown Primary Care [...] Medical Devices Not on file Care Teams Manager Mutual Fund Relationship Specialty Start Date End Date Pcp, Unknown PCP - General 07/07/20 Additional Source Comments The information contained in this document represents components of the legal health record. It is not the complete legal health record.[facility]
== END 2025-03-18 11:56 | disposition home or self-care (01) ==
LOC: HO.HMCH 11:00
PROVIDERS: PCP Internal Medicine; Visit Provider Internal Medicine
DX: Z00.00 Encounter for general adult medical examination without abnormal findings (principal); G43.109 Migraine with aura, not intractable, without status migrainosus; E66.9 Obesity, unspecified; Z68.34 Body mass index [BMI] 34.0-34.9, adult; M54.50 Low back pain, unspecified; G89.29 Other chronic pain; Z12.11 Encounter for screening for malignant neoplasm of colon; R73.02 Impaired glucose tolerance (oral); F41.1 Generalized anxiety disorder

== ENCOUNTER → 2025-03-18 10:59 | Outpatient (BNVA) | payer OTHER, SELFPAY | PROVIDERS: PCP Internal Medicine; Visit Provider Internal Medicine | DX: Z00.00 Encounter for general adult medical examination without abnormal findings (principal); G43.109 Migraine with aura, not intractable, without status migrainosus; M54.50 Low back pain, unspecified; G89.29 Other chronic pain; E66.9 Obesity, unspecified; R73.02 Impaired glucose tolerance (oral); F41.1 Generalized anxiety disorder; E55.9 Vitamin D deficiency, unspecified; K59.00 Constipation, unspecified; E53.8 Deficiency of other specified B group vitamins; D50.9 Iron deficiency anemia, unspecified; Z68.34 Body mass index [BMI] 34.0-34.9, adult | CPT/HCPCS: 99396 ==

== ENCOUNTER 2025-07-07 11:14 | Outpatient (AMB) | payer OTHER, SELFPAY ==
--- NOTE | 2025-07-07 13:28 | MHC.OFFVISWM ---
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 BMI 32.4: Details: Start time: 1.23pm, End time: 1.53pm ?I spent 25 minutes speaking with the patient on the phone plus an additional 5 minutes reviewing and updating records for a total of 30 minutes HPI Comments Details: Previous weight loss efforts: self diet and exercise Wakes up: 6.45am, Sleeps: 10pm Breakfast: 8am(sandwich) Lunch 1pm (soup) Dinner: 6pm (rice, chicken) Snacks: 11am (chips or cookies) Exercise: none Beverages: Coffee (2 cups/d with cream and sugar), Tea: none, Soda: none, Juice: (2 cups/day), ETOH: none PFSH Medical History (Updated 07/07/25 @ 13:30 by Jesús Case MD) BMI 32.0-32.9,adult Abnormal perimenopausal bleeding Allergic rhinitis Generalized anxiety disorder Vitamin D deficiency Lumbar herniated disc Obesity (BMI 30-39.9) Migraine headache Surgical History Hx of cardiac catheterization History of back surgery History of tubal ligation Family History Father Myocardial infarction History of heart artery stent CVD (cardiovascular disease) HTN (hypertension) Mother No problems noted. 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- [employer] Cognitive needs: No Hearing needs: No Vision needs: No Telehealth Telehealth Telehealth Platform: Telephone Location of provider rendering services: practice address Location of patient: address on file Patient Identification confirmed using: Name, : Yes Telehealth method: voice only Patient verbally consented to treatment: Yes Patient verbally consented to billing insurance company: Yes Patient informed of any privacy concerns related to visit: Yes Minutes spent on Phone/Video with Pt.: 30 Assessment & Plan Assessment & Plan (1) Obesity (BMI 30-39.9): Code(s): E66.9 - Obesity, unspecified Category: Medical Plan: 1.?Nutritional counseling. Start with one premade PREMIER protein (buy at [employer] or [facility]) shake (mix 4oz of Premier mixed with 4oz low fat unsweetened almond milk each) at 7am-9am, one protein bar (Fit Crunch protein bar, buy at [employer] [facility], or [employer]) at 10am-12pm, another premade PREMIER protein shake (mix 4oz of Premier mixed with 4oz low fat unsweetened almond milk each) at 1pm-3pm, another [employer] protein bar,? dinner at 7pm (8 forks of protein and 8 forks of salad/vegetables) and HALF [employer] protein bar at 9pm-10pm. So you do 2 protein shakes, 2.5 protein bars and one meal per day. Meal to include lean meat (beef, fish, pork, turkey, chicken), or korean yogurt, or egg whites, or beans with a salad with olive oil and fruits (berries, pears, apples, kiwi). Avoid salt, breads, potatoes, rice, pasta, desserts. 2. Each shake would be drunk slowly, like coffee in a period of 2 hours. 3. Cut each bar in 4 pieces and eat each piece in 30min ?to make each bar last 2 hours. 4. I emphasized the importance of measuring accurately the food portion and measure it when serving the food in plate 5. The meal portions include 8 full-size forks of meat and 8 full-size forks of salad. You always eat the meat portion but you can replace up to 4 forks for salad/vegetables with rice, potatoes or pasta, or a fruit ?if you like. The less you do it the better weight loss will be. 6. One full-size fork is what it can be scooped on the fork without falling aside and not what can be bit with the fork. Use regular forks like those you find in a typical restaurant. 7.? Please buy the body composition scale we discussed and send me weight measurements as soon as possible and then once a week. Always include your diet and exercise plan. 8. The best choice would be to purchase a stationary bike at home that can track calories. If you get one, please start stationary bike at a resistance level of 4.0 Increase level by 1.0 every 3 min to a max level of 10.0. Stay at this level for 3 min and then return to level 4.0 and repeat same steps until 300 calories are burned. Goal is to burn 2000 calories per week on exercise 9.?It is important of avoiding and for at least 18 months postoperatively and has been discussed at the infosession. 10. Goal is to lose at least 1.5-2lbs per week 11. Goal to lose at least 10% of your weight, which is about 20lbs. Minimum weight goal: 20lbs 12. Please follow the diet plan exactly without any change. If you don't like something about the plan or you feel hungry you need to communicate with me so I can help you revise the plan. You should not change the plan yourself 13. Please take Phentermine daily at 10am. We discussed the potential side-effects of the Phentermine such as heart palpitations, irritability, dry mouth, difficulty sleeping, dizziness, numbness in feet and high blood pressure. I asked her to get a blood pressure monitor and measure the blood pressure daily in the morning and evening. She needs to send the blood pressure readings daily and to call the office for blood pressure over 140/80 and she understands that. Medications: New phentermine must administer 30 minutes before or 1-2 hours after breakfast 37.5 mg PO DAILY 30 tabs 0RF E66.9 - Obesity, unspecified, R73.02 - Impaired glucose tolerance (oral)
[2025-07-07 13:33] VITALS: BMI 32.4
--- OUTSIDE RECORDS SUMMARY | 2025-07-07 14:48 | XMS_ITS | Clinical Summary ---
Author Organization [facility] Address [address] [place] [address] Phone Care Team Providers Care Warp Clamper Name Role Phone Pcp, Unknown Primary Care [...] FOBT 2022 SIGMOIDOSCOPY 2022 VIRTUAL COLONOSCOPY 2022 Adult Td,Tdap Booster 01/27/2025 01/27/2015 INFLUENZA VACCINE (#1) 2025 3, 05/09/2017 COVID-19 VACCINE (3 2024-2 6 season) 2025 08/30/2021, 03/30/2021 HEPATITIS A VACCINES Aged Out No long [...] Medical Devices Not on file Care Teams Warp Clamper Relationship Specialty Start Date End Date Pcp, Unknown PCP - General 07/07/20 Additional Source Comments The information contained in this document represents components of the legal health record. It is not the complete legal health record.[facility]
== END 2025-07-07 13:54 | disposition home or self-care (01) ==
LOC: HO.HBS 11:14
PROVIDERS: PCP Internal Medicine; Visit Provider Surgery
DX: E66.9 Obesity, unspecified (principal)
CPT/HCPCS: 99203

== ENCOUNTER 2025-07-13 08:03 | Outpatient (REF) | payer OTHER, SELFPAY ==
--- OUTSIDE RECORDS SUMMARY | 2025-07-13 08:08 | XMS_ITS | Clinical Summary ---
Author Organization [facility] Address [address] [place] [address] Phone Care Team Providers Care Senior Engineering Manager Name Role Phone Pcp, Unknown Primary Care [...] Medical Devices Not on file Care Teams Senior Engineering Manager Relationship Specialty Start Date End Date Pcp, Unknown PCP - General 07/07/20 Additional Source Comments The information contained in this document represents components of the legal health record. It is not the complete legal health record.[facility]
[2025-07-13 08:16] LABS: MANUAL DIFF FLAG NO
[2025-07-13 08:40] LABS: Hematocrit 39.5 % (37.0-47.0); Hemoglobin 12.3 g/dl (12.0-16.0); Imm Gran Abs Auto 0.01 X10*3/uL (0.00-0.03); Imm Gran Pct Auto 0.1 % (0.0-0.4); Lymphocytes Absolute Auto 2.1 X10*3/uL (1.2-4.9); Mean Corpuscular HGB Conc 31.1 g/dl (31.0-35.0); Mean Corpuscular Hemoglobin 26.3 pg (27.0-33.0); Mean Corpuscular Volume 84.6 fL (80.0-98.0); NRBC Abs Auto 0.000 X10*3/uL (0.0-0.012); NRBC Pct Auto 0.0 /100WBC (0.0-0.2); Platelet Count 290 X10*3/uL (160-400); Red Blood Count 4.67 X10*6/uL (4.20-5.50); Reticulocytes Absolute 0.055 X10*6/uL (0.026-0.095); White Blood Count 8.5 X10*3/uL (4.8-10.8)
[2025-07-13 09:25] LABS: Alanine Aminotransferase 11 U/L (0-31); Albumin Level 4.3 g/dL (3.5-5.0); Alkaline Phosphatase 110 U/L (39-117); Anion Gap 12 (12-20); Aspartate Amino Transferase 21 U/L (5-31); Blood Urea Nitrogen 8 mg/dL (9-16); Calcium 9.3 mg/dL (8.4-10.2); Carbon Dioxide 25 mmol/L (22-29); Chloride 106 mmol/L (96-108); Estimated Glomerular Filt Rate > 60; Iron 127 mcg/dL (30-160); Percent Iron Saturation 42 % (15-50); Potassium 3.8 mmol/L (3.3-5.1); Sodium 139 mmol/L (135-145); Total Iron Binding Capacity 303 mcg/dL (228-428); Total Protein 7.6 g/dL (6.5-8.0); Unsaturated Iron Binding 176 ug/dL
[2025-07-13 09:34] LABS: Ferritin 32 ng/mL (10-250)
[2025-07-13 10:44] LABS: Folate 8.2 ng/mL (> or = 4.0); Vitamin B12 301 pg/mL (200-900)
== END 2025-07-13 08:04 | disposition home or self-care (01) ==
LOC: HO.LAB 08:03
PROVIDERS: PCP Internal Medicine; Visit Provider Internal Medicine
DX: R73.02 Impaired glucose tolerance (oral) (principal)
CPT/HCPCS: 36415; 80053; 82306; 82607; 82728; 82746; 83036; 83540; 85025; 85045

== ENCOUNTER 2025-07-15 10:38 | Outpatient (AMB) | payer OTHER, SELFPAY ==
--- OUTSIDE RECORDS SUMMARY | 2025-07-15 10:44 | XMS_ITS | Clinical Summary ---
Author Organization [facility] Address [address] [place] [address] Phone Care Team Providers Care Offset Second Press Operator Name Role Phone Pcp, Unknown Primary Care [...] Medical Devices Not on file Care Teams Offset Second Press Operator Relationship Specialty Start Date End Date Pcp, Unknown PCP - General 07/07/20 Additional Source Comments The information contained in this document represents components of the legal health record. It is not the complete legal health record.[facility]
[2025-07-15 10:45] VITALS: BP 128/68; PULSE 71; O2SAT 98; BMI 35.2
--- NOTE | 2025-07-15 10:45 | MHC.PC.OV ---
Vital Signs 07/15/25 10:45 Height 5 ft 3 in Weight 199 lb BMI 35.2 BP 128/68 Blood Pressure Location Lt brachial Position Sitting Pulse 71 Pulse Source Pulse Oximeter Pulse Oximetry (%) 98 Oxygen Delivery Method Room Air Intake Visit Reasons: 3 mo follow up anemia Allergies No Known Allergies Allergy (Verified 07/15/25 10:45) Medication List - Last Reconciled 07/15/25 by Klaus Pineda MD ascorbate calcium (vitamin C) 500 mg PO DAILY cholecalciferol (vitamin D3) 50 mcg PO DAILY 90 days cyanocobalamin (vitamin B-12) 1,000 mcg PO DAILY ferrous sulfate (FeroSul) 325 mg PO DAILY phentermine 37.5 mg PO DAILY Tobacco use date assessed: 07/30/24 Dental Screening Dental Screen Date: 07/30/24 HPI HPI Comments History of Present Illness Details History of Present Illness The patient is a 50-year-old obese female presenting for a follow-up visit. Her past medical history is significant for migraines and chronic low back pain. She was last seen for a physical exam in February and was recently treated for an upper respiratory tract infection. For weight management, the patient has been seeing the weight management clinic and was started on phentermine. Recent blood work from July 13 revealed a fasting blood sugar of 106 mg/dL and a hemoglobin A1c of 6.0%, consistent with prediabetes and stable since February. Labs also showed a low vitamin D level and a borderline vitamin B12 level, which improved from 288 to 301. Her CBC, electrolytes, renal function, liver function, and iron levels were normal, and her LDL was 100 mg/dL in February. For health maintenance, the patient has a mammogram scheduled for July 17. She is due for a colonoscopy for screening, which was postponed pending cardiac clearance. The cardiac evaluation is complete and normal, but she has not been contacted to reschedule the procedure, and she has a family history of polyps in her father. The patient also reports hair loss and is awaiting a dermatology consultation for which a prior referral was made. Health Maintenance The patient will proceed with her scheduled mammogram. A new referral will be placed for a colonoscopy for screening, given her family history of polyps. The patient is advised to continue her vitamin B12 supplementation to maintain her level. She can take her iron supplement every other day to manage constipation, as her blood count is normal. Social History - The patient is actively engaged in a weight management program, which includes counseling and monthly check-ins. - She utilizes a digital health application to monitor and report her weight to the weight management team weekly. Results - Labs (July 13): - CBC: Normal, no anemia. - CMP: Normal electrolytes, normal renal function. - Fasting Blood Glucose: 106 mg/dL. - Hemoglobin A1c: 6.0%. - Iron/Ferritin: Normal. - Vitamin B12: 301 (improved from 288). - Vitamin D: Low. - Liver Function Tests: Normal. - Thyroid test: Good. - Labs (February): - LDL Cholesterol: 100 mg/dL. [facility] Medical History (Updated 07/07/25 @ 13:30 by Jesús Case MD) BMI 32.0-32.9,adult Abnormal perimenopausal bleeding Allergic rhinitis Generalized anxiety disorder Vitamin D deficiency Lumbar herniated disc Obesity (BMI 30-39.9) Migraine headache Surgical History Hx of cardiac catheterization History of back surgery History of tubal ligation Family History Father Myocardial infarction History of heart artery stent CVD (cardiovascular disease) HTN (hypertension) Mother No problems noted. Maternal Grandfather Esophageal cancer Paternal Aunt Lung cancer CVD (cardiovascular disease) Daughter Leukemia Social History Housing: Apartment Alcohol intake: current Alcohol intake frequency: holidays/special occasions only Patient Tobacco Use Status: Former Tobacco user Tobacco use type: Cigarette Years Smoked: [id number] e-Cigarette/Vaping Use: Never Used Second Hand Smoke Exposure: No service: No Current occupational status: employed Current occupation: [employer]OVER- [employer] Cognitive needs: No Hearing needs: No Vision needs: No Questionnaire Thrive Questionnaire Date Thrive assessed: 03/18/25 I am a: Patient What is your living situation today?: I have a steady place to live Within the past 12 months, did the food you bought not last and you didn't have the money to get more?: Sometimes True Within the past 12 months, did you worry whether your food would run out before you got money to buy more?: Sometimes True Do you have trouble paying for medicines?: I choose not to answer this question Do you have trouble getting transportation to medical appointments?: No Do you have trouble paying your heating and electricity bill?: Yes Do you have trouble taking care of your child, family member or friend?: I choose not to answer this question Do you have trouble with day-to-day activities such as bathing, preparing meals, shopping, managing finances, etc.?: No Are you currently unemployed and looking for a job?: No Are you interested in more education?: No Currently or been in a relationship where the following occur: No concerns reported THRIVE Score: 3 AVERY-7 AMB Questionnaire AVERY-7 Date AVERY - 7 assessed: 07/30/24 Source: Developed by Drs. Glenn Varela, Wanda Jasso, Jesús Owen and colleagues, with an educational torrey from [employer]. Review of Systems Narrative Review of Systems - Hair: Reports hair loss. - Cardiovascular: Denies palpitations. - HEENT: Reports recent headache. Physical exam (Primary Care) Vital Signs: Last Vital Signs Pulse 71 07/15/25 10:45 BP 128/68 07/15/25 10:45 Pulse Ox 98 07/15/25 10:45 Oxygen Delivery Method Room Air 07/15/25 10:45 BMI result Body Mass Index 35.2 Tobacco/Smoking Status: Tobacco use Status Tobacco use date assessed 07/30/24 07/15/25 10:46 Patient Tobacco Use Status Former Tobacco user 07/15/25 10:46 Tobacco use type Cigarette 07/15/25 10:46 e-Cigarette/Vaping Use Never Used 07/15/25 10:46 Thrive Assessment: Date of Thrive Assessment Date Thrive assessed 03/18/25 07/15/25 10:46 Currently or been in a relationship where the following occur: No concerns reported Narrative Physical Exam - General: Obese female. - HEENT: Nasal examination performed. Const General: alert; No acute distress Eyes Conjunctivae: conjunctivae normal Resp Auscultation: clear to auscultation bilaterally Cardio Rate: regular rate Rhythm: regular rhythm GI Inspection: Yes normal to inspection Extrem General: Yes normal to inspection and No edema Coding Level of Care Code Est Pt Level 4 (78393) Add On Problem Visit Only Diagnoses Impaired glucose tolerance R73.02 Obesity (BMI 30-39.9) E66.9 Vitamin D deficiency E55.9 Migraine with aura and without status migrainosus, not intractable G43.109 Intractability: not intractable Migraine type: with aura Status migrainosus presence: without status migrainosus Generalized anxiety disorder F41.1 Colon cancer screening Z12.11 Assessment & Plan Assessment & Plan (1) Impaired glucose tolerance: Code(s): R73.02 - Impaired glucose tolerance (oral) Category: Medical Plan: Decrease the amount of carbohydrate intake, pasta, bread, rice and potatoes are all sugar and that is aside from all the sweet stuff, remember that fruits are good but they are Sweet also. (2) Obesity (BMI 30-39.9): Code(s): E66.9 - Obesity, unspecified Category: Medical Plan: Diet and exercise (3) Vitamin D deficiency: Code(s): E55.9 - Vitamin D deficiency, unspecified Category: Medical Plan: Continue to take vitamin-D 2235-7309 units once a day (4) Migraine headache: Code(s): G43.909 - Migraine, unspecified, not intractable, without status migrainosus Category: Medical Qualifiers: Intractability: not intractable Migraine type: with aura Status migrainosus presence: without status migrainosus Qualified Code(s): G43.109 - Migraine with aura, not intractable, without status migrainosus Plan: Patient is advised to eat healthy, keep well hydrated, keep active and have adequate sleep. (5) Generalized anxiety disorder: Code(s): F41.1 - Generalized anxiety disorder Category: Medical (6) Colon cancer screening: Comment: Referred for screening colonoscopy however recent cardiac event undergoing cardiac evaluation-history unclear Will hold off at this time Code(s): Z12.11 - Encounter for screening for malignant neoplasm of colon Category: Medical Plan Plan Patient was informed and verbally consented to the use of an ambient scribe for clinic note documentation during this visit. 1. Obesity The patient will continue with phentermine for weight management. She has been counseled to monitor her blood pressure twice daily and to watch for palpitations. She will continue to follow up with the weight management clinic monthly and report her weight via an rosalee. 2. Prediabetes The patient's hemoglobin A1c is stable at 6.0%. No medication is required at this time. The plan includes diet and exercise, and the patient has been advised to be careful with her sugar intake. 3. Vitamin D Deficiency The patient's vitamin D level remains low despite supplementation. She is advised to continue taking vitamin D 1000 to 2000 units daily, and the importance of adherence for bone health was emphasized. 4. Alopecia A new referral to dermatology will be placed for evaluation of her hair loss. A topical liquid medication was discussed as a potential treatment option. Discussion Notes I informed the patient that her recent blood work was reviewed. I explained that her Hemoglobin A1c is stable at 6.0%, which is in the prediabetic range but does not require medication at this time, and we discussed the importance of diet and being careful with sugar. We reviewed the risks of phentermine, including palpitations and elevated blood pressure, and I instructed her to monitor her blood pressure at home. I noted her Vitamin B12 level has improved and advised her to continue supplementation. I also highlighted that her vitamin D is still low and emphasized the need for consistent daily supplementation for her bone health. Regarding her hair loss and need for a colonoscopy, I informed her I would issue new referrals for both dermatology and gastroenterology. Her upcoming mammogram was also confirmed. Patient Instructions - Continue taking phentermine for weight loss and keep up with your follow-up appointments with the weight management clinic. - Check your blood pressure twice a day, once in the morning and once in the afternoon. - Be mindful of your sugar intake and continue with your diet and exercise plan. - Take your Vitamin D supplement every day, as recommended (1000 to 2000 units), as your levels are low. - Continue taking your Vitamin B12 supplement. - You can take your iron supplement every other day if it causes constipation. - Attend your scheduled mammogram on July 17. - Our office will send a new referral to a meat puller for your hair loss. - Our office will also send a new referral for your colonoscopy. Orders: Referrals Dermatology Referral L65.9 - Nonscarring hair loss, unspecified Gastroenterology Referral Z12.11 - Encounter for screening for malignant neoplasm of colon Medications: New minoxidil 2% 1 mL topical BID 60 mL 0RF L65.9 - Nonscarring hair loss, unspecified
== END 2025-07-15 11:43 | disposition home or self-care (01) ==
LOC: HO.HMCH 10:38
PROVIDERS: PCP Internal Medicine; Visit Provider Internal Medicine
DX: R73.02 Impaired glucose tolerance (oral) (principal); E66.9 Obesity, unspecified; E55.9 Vitamin D deficiency, unspecified; G43.109 Migraine with aura, not intractable, without status migrainosus; F41.1 Generalized anxiety disorder; Z12.11 Encounter for screening for malignant neoplasm of colon

== ENCOUNTER → 2025-07-15 10:38 | Outpatient (BNVA) | payer OTHER, SELFPAY | PROVIDERS: PCP Internal Medicine; Visit Provider Internal Medicine | DX: Z12.11 Encounter for screening for malignant neoplasm of colon (principal); R73.02 Impaired glucose tolerance (oral); E66.9 Obesity, unspecified; E55.9 Vitamin D deficiency, unspecified; G43.109 Migraine with aura, not intractable, without status migrainosus; F41.1 Generalized anxiety disorder; Z68.35 Body mass index [BMI] 35.0-35.9, adult | CPT/HCPCS: 99212 ==

== ENCOUNTER 2025-07-17 07:30 | Outpatient (REF) | payer OTHER, SELFPAY ==
--- NOTE | ~2025-07-17 | MM_ITS ---
EXAMINATION: MM SCREENING DIGITAL BREAST TOMOSYNTHESIS, BILATERAL CLINICAL INFORMATION: Screening. Asymptomatic. COMPARISON: Comparison made to multiple prior, most recent July 10, 2024, and most remote June 06, 2017. TECHNIQUE: Digital breast tomosynthesis is performed in mediolateral oblique and craniocaudal views along with computer-aided detection (CAD). Synthesized 2D images are generated from the tomosynthesis. FINDINGS: BREAST COMPOSITION: The breasts are heterogeneously dense, which may obscure small masses. BILATERAL BREASTS: No significant masses, suspicious calcifications or other abnormalities are seen in either breast. MM/MM tomosynthesis screening BI IMPRESSION: BILATERAL BREASTS: Negative, no mammographic evidence of malignancy. Normal interval follow-up is recommended in 12 months. ASSESSMENT: BI-RADS: Category 1: Negative RECOMMENDATION: Routine annual mammography screening. FOLLOW-UP: 1 year F/U This examination should not preclude the clinical evaluation of a suspicious palpable abnormality. This patient's information was entered into a reminder system with a target due date for their next mammogram. Electronically signed by: Niels Unger MD 07/18/2025 05:25 PM [facility]
--- OUTSIDE RECORDS SUMMARY | 2025-07-17 07:33 | XMS_ITS | Clinical Summary ---
Author Organization [facility] Address [address] [place] [address] Phone Care Team Providers Care Horticulture Worker Name Role Phone Pcp, Unknown Primary Care [...] Medical Devices Not on file Care Teams Horticulture Worker Relationship Specialty Start Date End Date Pcp, Unknown PCP - General 07/07/20 Additional Source Comments The information contained in this document represents components of the legal health record. It is not the complete legal health record.[facility]
== END 2025-07-17 07:31 | disposition home or self-care (01) ==
LOC: HO.MAMMO 07:30
PROVIDERS: PCP Internal Medicine; Visit Provider Internal Medicine
DX: Z12.31 Encounter for screening mammogram for malignant neoplasm of breast (principal)
CPT/HCPCS: 77063; 77067

== ENCOUNTER → 2025-07-17 07:30 | Outpatient (BNV) | payer OTHER, SELFPAY | PROVIDERS: PCP Internal Medicine; Visit Provider Radiology Body Imaging | DX: Z12.31 Encounter for screening mammogram for malignant neoplasm of breast (principal) | CPT/HCPCS: 77063; 77067 ==